=== PATIENT | female | born 1960 | race Caucasian/White ===

== ENCOUNTER 2018-07-01 05:55 | Emergency (ER) | payer OTHER ==
[~2018-07-01] VITALS: Ht 170.2 cm; Wt 90.7 kg
--- OUTSIDE RECORDS SUMMARY | ~2018-07-01 | XMS | Encounter Summary ---
Demographics + + + | Address | [address] | | | [place] [address] | + + + | Home Phone | [phone] | + + + | Preferred Language | Unknown | + + + | Marital Status | | + + + | Protestant Affiliation | Unknown | + + + | Race | Unknown | + + + | Ethnic Group | Unknown | + + + Author + + + | Author | | + + + | Organization | | + + + | Address | [address] | | | [place] [address] | + + + | Phone | [phone] | + + + Care Team Providers + +------+ + | Care Robotics Systems Engineer Name | Role | Phone | + +------+ + | Dayanara Candelaria MD | 3 | [phone] | + +------+ + Reason for Visit + + | None recorded. | + + Instructions + + | 1. Insect bite - wound | + + | culture, deep wound | + + + + | Discussion Note | + + | INSECT BITE this appears to be the insect bite reaction pt to dress w bacitracin | | /bandaid she should be at maximum now and should be getting better from today. ice | | periodically, elevate leg above heart level non sedating antihistamine Recheck if not | | markedly improved in 2 days, or not entirely well in ten days. Recheck sooner if | | worsening. | |non sedating antihistamine | | | |Recheck if not markedly improved in 2 days, or not entirely well in ten days. Recheck soone r if worsening. | + + Patient educational handouts: No information available. Plan of Care + + + + + | Reminders | | | Provider | | | | | | + + + + + | Appointments | Office Visit | 06/22/2017 8:00AM | [facility] Candelaria, | | | | | | + + + + + | Lab | Culture, Deep Wound | 06/05/2017 | [facility] | | | | | [place] [facility] | + + + + + | Referral | None recorded. | | | + + + + + | Procedures | None recorded. | | | + + + + + | Surgeries | None recorded. | | | + + + + + | Imaging | None recorded. | | | + + + + + Medications + + + + | Name | Start Date | | | | | | + + + + + +---+ | Activella 0.5 mg-0.1 mg tablet | | | Take 1 tablet every day by oral route. | | + +---+ | amlodipine 5 mg tablet | | | TAKE ONE TABLET BY MOUTH EVERY DAY | | + +---+ | losartan 100 mg-hydrochlorothiazide 25 mg | | | tablet TAKE ONE TABLET BY MOUTH EVERY | | | MORNING | | + +---+ | pantoprazole 40 mg tablet,delayed release | | | TAKE ONE TABLET BY MOUTH EVERY NIGHT AT | | | BEDTIME | | + +---+ | pravastatin 40 mg tablet | | | TAKE ONE TABLET BY MOUTH DAILY | | + +---+ Medications Administered None recorded. Vitals + + + + + | Height | Weight | BMI | Blood Pressure | + + + + + | 5 ft 7 in | 200 lbs | 31.3 kg/m2 | 172/79 mm[Hg] | + + + + + Lab Results +-------+-------+-------+-------+-------+-------+-------+-------+-------+-------+-------+ | Date | Name | Speci | Resul | Inter | Descr | Value | Range | Statu | Addre | | | | | men | t | preta | iptio | | | s | ss | | | | | | | tion | n | | | | | | | | | | | | | | | | | | | | | | | | | | | | | | | | | | | | | | | | | | | | | | | | | | | | | | +-------+-------+-------+-------+-------+-------+-------+-------+-------+-------+-------+ +--------+--------+---+--------+---+--------+--------+--------+-------+--------+ | 12/ | CMP, | | Normal | | Na | 141 | 136-14 | Final | [facility] | | 2017 | Serum | | | | | mmol/L | 5 | | [facility] | | | or | | | | | | mmol/L | | l | | | Plasma | | | | | | | | Center | | | | | | | | | | | | | | | | | | | | | | (Main) | | | | | | | | | | | : [address] | | | | | | | | | | | | | | | | | | | | | | [address] | | | | | | | | | | | [address] | | | | | | | | | | | [address], | | | | | | | | | | | [place] | | | | | | | | | | | rg | +--------+--------+---+--------+---+--------+--------+--------+-------+--------+ | | | | Normal | | K | 3.5 | 3.5-5. | Final | [facility] | | | | | | | | mmol/L | 5 | | [facility] | | | | | | | | | mmol/L | | l | | | | | | | | | | | Center | | | | | | | | | | | | | | | | | | | | | | (Main) | | | | | | | | | | | : [address] | | | | | | | | | | | | | | | | | | | | | | [address] | | | | | | | | | | | [address] | | | | | | | | | | | [address], | | | | | | | | | | | [place] | | | | | | | | | | | rg | +--------+--------+---+--------+---+--------+--------+--------+-------+--------+ | | | | Normal | | Cl | 102 | 98-108 | Final | [facility] | | | | | | | | mmol/L | | | [facility] | | | | | | | | | mmol/L | | l | | | | | | | | | | | Center | | | | | | | | | | | | | | | | | | | | | | (Main) | | | | | | | | | | | : [address] | | | | | | | | | | | | | | | | | | | | | | [address] | | | | | | | | | | | [address] | | | | | | | | | | | [address], | | | | | | | | | | | [place] | | | | | | | | | | | rg | +--------+--------+---+--------+---+--------+--------+--------+-------+--------+ | | | | Normal | | Co2 | 27 | 21-32 | Final | [facility] | | | | | | | | mmol/L | mmol/L | | [facility] | | | | | | | | | | | l | | | | | | | | | | | Center | | | | | | | | | | | | | | | | | | | | | | (Main) | | | | | | | | | | | : [address] | | | | | | | | | | | | | | | | | | | | | | [address] | | | | | | | | | | | [address] | | | | | | | | | | | [address], | | | | | | | | | | | [place] | | | | | | | | | | | rg | +--------+--------+---+--------+---+--------+--------+--------+-------+--------+ | | | | Normal | | Anion | 12 | 6-16 | Final | [facility] | | | | | | | Gap | mmol/L | mmol/L | | [facility] | | | | | | | | | | | l | | | | | | | | | | | Center | | | | | | | | | | | | | | | | | | | | | | (Main) | | | | | | | | | | | : [address] | | | | | | | | | | | | | | | | | | | | | | [address] | | | | | | | | | | | [address] | | | | | | | | | | | [address], | | | | | | | | | | | [place] | | | | | | | | | | | rg | +--------+--------+---+--------+---+--------+--------+--------+-------+--------+ | | | | High | | Gluc | 107 | 70-99 | Final | [facility] | | | | | | | | mg/dL | mg/dL | | [facility] | | | | | | | | | | | l | | | | | | | | | | | Center | | | | | | | | | | | | | | | | | | | | | | (Main) | | | | | | | | | | | : [address] | | | | | | | | | | | | | | | | | | | | | [address] | | | | | | | | | | | [address] | | | | | | | | | | | [address], | | | | | | | | | | | [place] | | | | | | | | | | | rg | +--------+--------+---+--------+---+--------+--------+--------+-------+--------+ | | | | Normal | | Bun | 18 | 8-24 | Final | [facility] | | | | | | | | mg/dL | mg/dL | | [facility] | | | | | | | | | | | l | | | | | | | | | | | Center | | | | | | | | | | | | | | | | | | | | | | (Main) | | | | | | | | | | | : [address] | | | | | | | | | | | | | | | | | | | | | | [address] | | | | | | | | | | | [address] | | | | | | | | | | | [address], | | | | | | | | | | | [place] | | | | | | | | | | | rg | +--------+--------+---+--------+---+--------+--------+--------+-------+--------+ | | | | Normal | | | 0.77 | 0.40-1 | Final | [facility] | | | | | | | Creati | mg/dL | .00 | | [facility] | | | | | | | nine | | mg/dL | | l | | | | | | | | | | | Center | | | | | | | | | | | | | | | | | | | | | | (Main) | | | | | | | | | | | : [address] | | | | | | | | | | | | | | | | | | | | | | [address] | | | | | | | | | | | t | | | | | | | | | | | [address], | | | | | | | | | | | [place] | | | | | | | | | | | rg | +--------+--------+---+--------+---+--------+--------+--------+-------+--------+ | | | | High | | | 23.4 % | 12.0-2 | Final | [facility] | | | | | | | BUN/cr | | 0.0 % | | [facility] | | | | | | | eat | | | | l | | | | | | | | | | | Center | | | | | | | | | | | | | | | | | | | | | | (Main) | | | | | | | | | | | : [address] | | | | | | | | | | | | | | | | | | | | | | [address] | | | | | | | | | | | t | | | | | | | | | | | [address], | | | | | | | | | | | [place] | | | | | | | | | | | rg | +--------+--------+---+--------+---+--------+--------+--------+-------+--------+ | | | | Normal | | Gfr | >60 | 60- | Final | [facility] | | | | | | | | | | | [facility] | | | | | | | | | | | l | | | | | | | | | | | Center | | | | | | | | | | | | | | | | | | | | | | (Main) | | | | | | | | | | | : [address] | | | | | | | | | | | | | | | | | | | | | | [address] | | | | | | | | | | | [address] | | | | | | | | | | | [address], | | | | | | | | | | | [place] | | | | | | | | | | | rg | +--------+--------+---+--------+---+--------+--------+--------+-------+--------+ | | | | Normal | | Ca | 9.1 | 8.5-10 | Final | [facility] | | | | | | | | mg/dL | .1 | | [facility] | | | | | | | | | mg/dL | | l | | | | | | | | | | | Center | | | | | | | | | | | | | | | | | | | | | | (Main) | | | | | | | | | | | : [address] | | | | | | | | | | | | | | | | | | | | | | [address] | | | | | | | | | | | [address] | | | | | | | | | | | [address], | | | | | | | | | | | [place] | | | | | | | | | | | rg | +--------+--------+---+--------+---+--------+--------+--------+-------+--------+ | | | | Normal | | Tot | 7.6 | 6.4-8. | Final | [facility] | | | | | | | Prot | g/dL | 2 g/dL | | [facility] | | | | | | | | | | | l | | | | | | | | | | | Center | | | | | | | | | | | | | | | | | | | | | | (Main) | | | | | | | | | | | : [address] | | | | | | | | | | | | | | | | | | | | | | [address] | | | | | | | | | | | t | | | | | | | | | | | [address], | | | | | | | | | | | [place] | | | | | | | | | | | rg | +--------+--------+---+--------+---+--------+--------+--------+-------+--------+ | | | | Normal | | Alb | 3.9 | 3.4-5. | Final | [facility] | | | | | | | | g/dL | 0 g/dL | | [facility] | | | | | | | | | | | l | | | | | | | | | | | Center | | | | | | | | | | | | | | | | | | | | | | (Main) | | | | | | | | | | | : [address] | | | | | | | | | | | | | | | | | | | | | | [address] | | | | | | | | | | | t | | | | | | | | | | | [address], | | | | | | | | | | | [place] | | | | | | | | | | | rg | +--------+--------+---+--------+---+--------+--------+--------+-------+--------+ | | | | Normal | | Glob | 3.7 | 2.2-4. | Final | [facility] | | | | | | | | g/dL | 0 g/dL | | [facility] | | | | | | | | | | | l | | | | | | | | | | | Center | | | | | | | | | | | | | | | | | | | | | | (Main) | | | | | | | | | | | : [address] | | | | | | | | | | | | | | | | | | | | | | [address] | | | | | | | | | | | t | | | | | | | | | | | [address], | | | | | | | | | | | [place] | | | | | | | | | | | rg | +--------+--------+---+--------+---+--------+--------+--------+-------+--------+ | | | | Normal | | | 1.1 | 0.8-1. | Final | [facility] | | | | | | | Alb/gl | | 8 | | [facility] | | | | | | | ob | | | | l | | | | | | | | | | | Center | | | | | | | | | | | | | | | | | | | | | | (Main) | | | | | | | | | | | : [address] | | | | | | | | | | | | | | | | | | | | | | [address] | | | | | | | | | | | t | | | | | | | | | | | [address], | | | | | | | | | | | [place] | | | | | | | | | | | rg | +--------+--------+---+--------+---+--------+--------+--------+-------+--------+ | | | | Normal | | Bili | 0.5 | 0.1-1. | Final | [facility] | | | | | | | Tot | mg/dL | 0 | | [facility] | | | | | | | | | mg/dL | | l | | | | | | | | | | | Center | | | | | | | | | | | | | | | | | | | | | | (Main) | | | | | | | | | | | : [address] | | | | | | | | | | | | | | | | | | | | [address] | | | | | | | | | | [address] | | | | | | | | | | | [address], | | | | | | | | | | | [place] | | | | | | | | | | | rg | +--------+--------+---+--------+---+--------+--------+--------+-------+--------+ | | | | Normal | | Alk | 106 | 40-126 | Final | [facility] | | | | | | | Phos | U/L | U/L | | [facility] | | | | | | | | | | | l | | | | | | | | | | | Center | | | | | | | | | | | | | | | | | | | | | | (Main) | | | | | | | | | | | : [address] | | | | | | | | | | | | | | | | | | | | | | [address] | | | | | | | | | | | t | | | | | | | | | | | [address], | | | | | | | | | | | [place] | | | | | | | | | | | rg | +--------+--------+---+--------+---+--------+--------+--------+-------+--------+ | | | | Normal | | Ast | 21 U/L | 12-37 | Final | [facility] | | | | | | | (Sgot) | | U/L | | [facility] | | | | | | | | | | | l | | | | | | | | | | | Center | | | | | | | | | | | | | | | | | | | | | | (Main) | | | | | | | | | | | : [address] | | | | | | | | | | | | | | | | | | | | | | [address] | | | | | | | | | | | t | | | | | | | | | | | [address], | | | | | | | | | | | [place] | | | | | | | | | | | rg | +--------+--------+---+--------+---+--------+--------+--------+-------+--------+ | | | | Normal | | Alt | 35 U/L | 12-78 | Final | [facility] | | | | | | | (Sgpt) | | U/L | | [facility] | | | | | | | | | | | l | | | | | | | | | | | Center | | | | | | | | | | | | | | | | | | | | | | (Main) | | | | | | | | | | | : [address] | | | | | | | | | | | | | | | | | | | | | | [address] | | | | | | | | | | | t | | | | | | | | | | | [address], | | | | | | | | | | | [place] | | | | | | | | | | | rg | +--------+--------+---+--------+---+--------+--------+--------+-------+--------+ | 05/20/ | CBC W/ | | Normal | | Wbc | 4.23 | 4.00-1 | Final | [facility] | | 2017 | Auto | | | | | K/mm3 | 1.30 | | [facility] | | | Diff | | | | | | K/mm3 | | l | | | | | | | | | | | Center | | | | | | | | | | | | | | | | | | | | | | (Main) | | | | | | | | | | | : [address] | | | | | | | | | | | | | | | | | | | | | | [address] | | | | | | | | | | | t | | | | | | | | | | | [address], | | | | | | | | | | | [place] | | | | | | | | | | | rg | +--------+--------+---+--------+---+--------+--------+--------+-------+--------+ | | | | Normal | | Rbc | 4.05 | 3.80-5 | Final | [facility] | | | | | | | | M/mm3 | .20 | | [facility] | | | | | | | | | M/mm3 | | l | | | | | | | | | | | Center | | | | | | | | | | | | | | | | | | | | | | (Main) | | | | | | | | | | | : [address] | | | | | | | | | | | | | | | | | | | | | | [address] | | | | | | | | | | | t | | | | | | | | | | | [address], | | | | | | | | | | | [place] | | | | | | | | | | | rg | +--------+--------+---+--------+---+--------+--------+--------+-------+--------+ | | | | Normal | | Hgb | 12.1 | 11.5-1 | Final | [facility] | | | | | | | | g/dL | 6.0 | | [facility] | | | | | | | | | g/dL | | l | | | | | | | | | | | Center | | | | | | | | | | | | | | | | | | | | | | (Main) | | | | | | | | | | | : [address] | | | | | | | | | | | | | | | | | | | | | | [address] | | | | | | | | | | | t | | | | | | | | | | | [address], | | | | | | | | | | | [place] | | | | | | | | | | | rg | +--------+--------+---+--------+---+--------+--------+--------+-------+--------+ | | | | Normal | | Hct | 35.3 % | 33.0-5 | Final | [facility] | | | | | | | | | 1.0 % | | [facility] | | | | | | | | | | | l | | | | | | | | | | | Center | | | | | | | | | | | | | | | | | | | | | | (Main) | | | | | | | | | | | : [address] | | | | | | | | | | | | | | | | | | | | | | [address] | | | | | | | | | | | t | | | | | | | | | | | [address], | | | | | | | | | | | [place] | | | | | | | | | | | rg | +--------+--------+---+--------+---+--------+--------+--------+-------+--------+ | | | | Normal | | Mcv | 87 fL | 80-100 | Final | [facility] | | | | | | | | | fL | | [facility] | | | | | | | | | | | l | | | | | | | | | | | Center | | | | | | | | | | | | | | | | | | | | | | (Main) | | | | | | | | | | | : [address] | | | | | | | | | | | | | | | | | | | | | | [address] | | | | | | | | | | | t | | | | | | | | | | | [address], | | | | | | | | | | | [place] | | | | | | | | | | | rg | +--------+--------+---+--------+---+--------+--------+--------+-------+--------+ | | | | Normal | | Mch | 29.9 | 26.0-3 | Final | [facility] | | | | | | | | pg | 4.0 pg | | [facility] | | | | | | | | | | | l | | | | | | | | | | | Center | | | | | | | | | | | | | | | | | | | | | | (Main) | | | | | | | | | | | : [address] | | | | | | | | | | | | | | | | | | | | | | [address] | | | | | | | | | | | t | | | | | | | | | | | [address], | | | | | | | | | | | [place] | | | | | | | | | | | rg | +--------+--------+---+--------+---+--------+--------+--------+-------+--------+ | | | | Normal | | Mchc | 34.3 | 31.5-3 | Final | [facility] | | | | | | | | g/dL | 6.5 | | [facility] | | | | | | | | | g/dL | | l | | | | | | | | | | | Center | | | | | | | | | | | | | | | | | | | | | | (Main) | | | | | | | | | | | : [address] | | | | | | | | | | | | | | | | | | | | | | [address] | | | | | | | | | | | t | | | | | | | | | | | [address], | | | | | | | | | | | [place] | | | | | | | | | | | rg | +--------+--------+---+--------+---+--------+--------+--------+-------+--------+ | | | | Normal | | Rdw | 41.1 | 35.1-4 | Final | [facility] | | | | | | | Sd | fL | 6.3 fL | | [facility] | | | | | | | | | | | l | | | | | | | | | | | Center | | | | | | | | | | | | | | | | | | | | | | (Main) | | | | | | | | | | | : [address] | | | | | | | | | | | | | | | | | | | | | | [address] | | | | | | | | | | | t | | | | | | | | | | | [address], | | | | | | | | | | | [place] | | | | | | | | | | | rg | +--------+--------+---+--------+---+--------+--------+--------+-------+--------+ | | | | Normal | | Rdw | 12.9 % | 11.7-1 | Final | [facility] | | | | | | | Cv | | 4.2 % | | [facility] | | | | | | | | | | | l | | | | | | | | | | | Center | | | | | | | | | | | | | | | | | | | | | | (Main) | | | | | | | | | | | : [address] | | | | | | | | | | | | | | | | | | | | [address] | | | | | | | | | | [address] | | | | | | | | | | | [address], | | | | | | | | | | | [place] | | | | | | | | | | | rg | +--------+--------+---+--------+---+--------+--------+--------+-------+--------+ | | | | Normal | | Plt | 237 | 150-40 | Final | [facility] | | | | | | | | K/mm3 | 0 | | [facility] | | | | | | | | | K/mm3 | | l | | | | | | | | | | | Center | | | | | | | | | | | | | | | | | | | | | | (Main) | | | | | | | | | | | : [address] | | | | | | | | | | | | | | | | | | | | | | [address] | | | | | | | | | | | t | | | | | | | | | | | [address], | | | | | | | | | | | [place] | | | | | | | | | | | rg | +--------+--------+---+--------+---+--------+--------+--------+-------+--------+ | | | | Normal | | Mpv | 9.9 fL | 9.1-12 | Final | [facility] | | | | | | | | | .4 fL | | [facility] | | | | | | | | | | | l | | | | | | | | | | | Center | | | | | | | | | | | | | | | | | | | | | | (Main) | | | | | | | | | | | : [address] | | | | | | | | | | | | | | | | | | | | | | [address] | | | | | | | | | | | t | | | | | | | | | | | [address], | | | | | | | | | | | [place] | | | | | | | | | | | rg | +--------+--------+---+--------+---+--------+--------+--------+-------+--------+ | | | | Normal | | Diff | auto | | Final | [facility] | | | | | | | Type | | | | [facility] | | | | | | | | | | | l | | | | | | | | | | | Center | | | | | | | | | | | | | | | | | | | | | | (Main) | | | | | | | | | | | : [address] | | | | | | | | | | | | | | | | | | | | | | [address] | | | | | | | | | | | t | | | | | | | | | | | [address], | | | | | | | | | | | [place] | | | | | | | | | | | rg | +--------+--------+---+--------+---+--------+--------+--------+-------+--------+ | | | | Normal | | Neut | 56 % | 41-73 | Final | [facility] | | | | | | | % | | % | | [facility] | | | | | | | | | | | l | | | | | | | | | | | Center | | | | | | | | | | | | | | | | | | | | | | (Main) | | | | | | | | | | | : [address] | | | | | | | | | | | | | | | | | | | | | | [address] | | | | | | | | | | | t | | | | | | | | | | | [address]kw[address], | | | | | | | | | | | [place] | | | | | | | | | | | rg | +--------+--------+---+--------+---+--------+--------+--------+-------+--------+ | | | | Normal | | Lymph | 32 % | 21-46 | Final | [facility] | | | | | | | % | | % | | [facility] | | | | | | | | | | | l | | | | | | | | | | | Center | | | | | | | | | | | | | | | | | | | | | | (Main) | | | | | | | | | | | : [address] | | | | | | | | | | | | | | | | | | | | | | [address] | | | | | | | | | | | t | | | | | | | | | | | [address], | | | | | | | | | | | [place] | | | | | | | | | | | rg | +--------+--------+---+--------+---+--------+--------+--------+-------+--------+ | | | | Normal | | [facility] | 7 % | 4-13 % | Final | [facility] | | | | | | | % | | | | [facility] | | | | | | | | | | | l | | | | | | | | | | | Center | | | | | | | | | | | | | | | | | | | | | | (Main) | | | | | | | | | | | : [address] | | | | | | | | | | | | | | | | | | | | | | [address] | | | | | | | | | | | t | | | | | | | | | | | [address], | | | | | | | | | | | [place] | | | | | | | | | | | rg | +--------+--------+---+--------+---+--------+--------+--------+-------+--------+ | | | | Normal | | Eosin | 3 % | 0-6 % | Final | [facility] | | | | | | | % | | | | [facility] | | | | | | | | | | | l | | | | | | | | | | | Center | | | | | | | | | | | | | | | | | | | | | | (Main) | | | | | | | | | | | : [address] | | | | | | | | | | | | | | | | | | | | | [address] | | | | | | | | | | | [address] | | | | | | | | | | | [address], | | | | | | | | | | | [place] | | | | | | | | | | | rg | +--------+--------+---+--------+---+--------+--------+--------+-------+--------+ | | | | Normal | | Baso | 1 % | 0-2 % | Final | [facility] | | | | | | [facility] | | | [facility] | | | | | | | | | | | [facility] | | | | | | | | | | | Center | | | | | | | | | | | | | | | | | | | | | | ([facility]) | | | | | | | | | | | : [address] | | | | | | | | | | | | | | | | | | | | | | [address] | | | | | | | | | | | [address] | | | | | | | | | | | [address], | | | | | | | | | | | [place] | | | | | | | | | | | rg | +--------+--------+---+--------+---+--------+--------+--------+-------+--------+ | | | | Normal | | Imm | 1 % | 0-1 % | Final | [facility] | | | | | | | Grans | | | | [facility] | | | | | | | % | | | | l | | | | | | | | | | | Center | | | | | | | | | | | | | | | | | | | | | | ([facility]) | | | | | | | | | | | : [address] | | | | | | | | | | | | | | | | | | | | | | [address] | | | | | | | | | | | [address] | | | | | | | | | | | [address], | | | | | | | | | | | [place] | | | | | | | | | | | rg | +--------+--------+---+--------+---+--------+--------+--------+-------+--------+ | | | | Normal | | Nrbc | 0.0 | 0.0-0. | Final | [facility] | | | | | | | | /100 | 2 /100 | | [facility] | | | | | | | | WBC | WBC | | l | | | | | | | | | | | Center | | | | | | | | | | | | | | | | | | | | | | ([facility]) | | | | | | | | | | | : [address] | | | | | | | | | | | | | | | | | | | | | | [address] | | | | | | | | | | | [address] | | | | | | | | | | | [address], | | | | | | | | | | | [place] | | | | | | | | | | | rg | +--------+--------+---+--------+---+--------+--------+--------+-------+--------+ | | | | Normal | | Abs | 2.39 | 1.96-9 | Final | [facility] | | | | | | | Neut | K/mm3 | .15 | | [facility] | | | | | | | | | K/mm3 | | l | | | | | | | | | | | Center | | | | | | | | | | | | | | | | | | | | | | ([facility]) | | | | | | | | | | | : [address] | | | | | | | | | | | | | | | | | | | | | | [address] | | | | | | | | | | | [address] | | | | | | | | | | | [address], | | | | | | | | | | | [place] | | | | | | | | | | | rg | +--------+--------+---+--------+---+--------+--------+--------+-------+--------+ | | | | Normal | | Abs | 1.36 | 0.84-5 | Final | [facility] | | | | | | | Lymph | K/mm3 | .20 | | [facility] | | | | | | | | | K/mm3 | | l | | | | | | | | | | | Center | | | | | | | | | | | | | | | | | | | | | | ([facility]) | | | | | | | | | | | : [address] | | | | | | | | | | | | | | | | | | | | | | [address] | | | | | | | | | | | [address] | | | | | | | | | | | [address], | | | | | | | | | | | [place] | | | | | | | | | | | rg | +--------+--------+---+--------+---+--------+--------+--------+-------+--------+ | | | | Normal | | Abs | 0.29 | 0.16-1 | Final | [facility] | | | | | | | [facility] | K/mm3 | .47 | | [facility] | | | | | | | | | K/mm3 | | l | | | | | | | | | | | Center | | | | | | | | | | | | | | | | | | | | | | (Main) | | | | | | | | | | | : [address] | | | | | | | | | | | | | | | | | | | | | | [address] | | | | | | | | | | | [address] | | | | | | | | | | | [address], | | | | | | | | | | | [place] | | | | | | | | | | | rg | +--------+--------+---+--------+---+--------+--------+--------+-------+--------+ | | | | Normal | | Abs | 0.12 | 0.00-0 | Final | [facility] | | | | | | | Eosin | K/mm3 | .68 | | [facility] | | | | | | | | | K/mm3 | | l | | | | | | | | | | | Center | | | | | | | | | | | | | | | | | | | | | | ([facility]) | | | | | | | | | | | : [address] | | | | | | | | | | | | | | | | | | | | | | [address] | | | | | | | | | | | [address] | | | | | | | | | | | [address], | | | | | | | | | | | [place] | | | | | | | | | | | rg | +--------+--------+---+--------+---+--------+--------+--------+-------+--------+ | | | | Normal | | Abs | 0.05 | 0.00-0 | Final | [facility] | | | | | | | Baso | K/mm3 | .23 | | [facility] | | | | | | | | | K/mm3 | | l | | | | | | | | | | | Center | | | | | | | | | | | | | | | | | | | | | | ([facility]) | | | | | | | | | | | : [address] | | | | | | | | | | | | | | | | | | | | | | [address] | | | | | | | | | | | [address] | | | | | | | | | | | [address], | | | | | | | | | | | [place] | | | | | | | | | | | rg | +--------+--------+---+--------+---+--------+--------+--------+-------+--------+ | | | | Normal | | Abs | 0.02 | 0.00-0 | Final | [facility] | | | | | | | Imm | K/mm3 | .10 | | [facility] | | | | | | | Grans | | K/mm3 | | l | | | | | | | | | | | Center | | | | | | | | | | | | | | | | | | | | | | (Main) | | | | | | | | | | | : [address] | | | | | | | | | | | | | | | | | | | | | | [address] | | | | | | | | | | | [address] | | | | | | | | | | | [address], | | | | | | | | | | | [place] | | | | | | | | | | | rg | +--------+--------+---+--------+---+--------+--------+--------+-------+--------+ | | | | Normal | | Abs | 0.00 | 0.00-0 | Final | [facility] | | | | | | | NRBC | K/mm3 | .02 | | [facility] | | | | | | | | | K/mm3 | | l | | | | | | | | | | | Center | | | | | | | | | | | | | | | | | | | | | | (Main) | | | | | | | | | | | : [address] | | | | | | | | | | | | | | | | | | | [address] | | | | | | | | | | [address] | | | | | | | | | | | [address], | | | | | | | | | | | [place] | | | | | | | | | | | rg | +--------+--------+---+--------+---+--------+--------+--------+-------+--------+ | 07/12/ | Erythr | | High | | Sed | 46 | 0-20 | Final | [facility] | | 2017 | ocyte | | | | Rate | mm/HR | mm/HR | | Medica | | | Sedime | | | | | | | | l | | | ntatio | | | | | | | | Center | | | n Rate | | | | | | | | | | | by | | | | | | | | (Main) | | | [place]attie | | | | | | | | : [address] | | | | | | | | | | | [address] | | | | | | | | [address] | | | | | | | | | | | t | | | | | | | | | | | Pkw[address], | | | | | | | | | | | [place] | | | | | | | | | | | rg | +--------+--------+---+--------+---+--------+--------+--------+-------+--------+ | 05/20/ | C-reac | | High | | CRP | 0.761 | 0.000- | Final | [facility] | | 2017 | tive | | | | Ext | mg/dL | 0.300 | | Medica | | | Protei | | | | Range | | mg/dL | | l | | | n, | | | | | | | | Center | | | Quanti | | | | | | | | | | | tative | | | | | | | | (Main) | | | | | | | | | | | : [address] | | | | | | | | | | | | | | | | | | | | | | [address] | | | | | | | | | | | t | | | | | | | | | | | Pkw[address], | | | | | | | | | | | [place] | | | | | | | | | | | rg | +--------+--------+---+--------+---+--------+--------+--------+-------+--------+ | 05/20/ | C3 | | Normal | | C3 | 140 | 90-200 | Final | [facility] | | 2017 | (Compl | | | | | mg/dL | mg/dL | | Medica | | | ement) | | | | | | | | l | | | , | | | | | | | | Center | | | Serum | | | | | | | | | | | or | | | | | | | | (Main) | | | Plasma | | | | | | | | : [address] | | | | | | | | | | | | | | | | | | | | | | [address] | | | | | | | | | | | t | | | | | | | | | | | Pkw[address], | | | | | | | | | | | [place] | | | | | | | | | | | rg | +--------+--------+---+--------+---+--------+--------+--------+-------+--------+ | 05/20/ | C4 | | Normal | | C4 | 24.8 | 15.0-5 | Final | [facility] | | 2016 | (Compl | | | | | mg/dL | 5.0 | | Medica | | | ement) | | | | | | mg/dL | | l | | | , | | | | | | | | Center | | | Serum | | | | | | | | | | | or | | | | | | | | (Main) | | | Plasma | | | | | | | | : [address] | | | | | | | | | | | | | | | | | | | | | | [address] | | | | | | | | | | | t | | | | | | | | | | | Pkw[address], | | | | | | | | | | | [place] | | | | | | | | | | | rg | +--------+--------+---+--------+---+--------+--------+--------+-------+--------+ | 05/20/ | HBsAg | | Normal | | Hbs | non | nr | Final | [facility] | | 2017 | (Hepat | | | | Ag | reacti | | | Medica | | | itis B | | | | Screen | ve | | | l | | | | | | | | | | | Center | | | Surfac | | | | | | | | | | | e Ag), | | | | | | | | (Main) | | | Serum | | | | | | | | : [address] | | | | | | | | | | | | | | | | | | | | | | [address] | | | | | | | | | | | t | | | | | | | | | | | Pkw[address], | | | | | | | | | | | [place] | | | | | | | | | | | rg | +--------+--------+---+--------+---+--------+--------+--------+-------+--------+ | 05/20/ | Hepati | | Normal | | Hcv | non | nr | Final | [facility] | | 2017 | tis C | | | | | reacti | | | Medica | | | Ab, | | | | | ve | | | l | | | Serum | | | | | | | | Center | | | | | | | | | | | | | | | | | | | | | | (Main) | | | | | | | | | | | : [address] | | | | | | | | | | | | | | | | | | | | | | [address] | | | | | | | | | | | t | | | | | | | | | | | Pkw[address], | | | | | | | | | | | [place] | | | | | | | | | | | rg | +--------+--------+---+--------+---+--------+--------+--------+-------+--------+ | 05/20/ | Anca, | | Normal | | Anca | <1:20 | | Final | [facility] | | 2017 | Serum | | | | | | | | Medica | | | | | | | | | | | l | | | | | | | | | | | Center | | | | | | | | | | | | | | | | | | | | | | (Main) | | | | | | | | | | | : [address] | | | | | | | | | | | | | | | | | | | | | | [address] | | | | | | | | | | | t | | | | | | | | | | | Pkw[address], | | | | | | | | | | | [place] | | | | | | | | | | | rg | +--------+--------+---+--------+---+--------+--------+--------+-------+--------+ | 05/20/ | Cryogl | | Normal | | | negati | neg | Final | [facility] | | 2017 | obulin | | | | Cryogl | ve | | | Medica | | | , | | | | obulin | | | | l | | | Qualit | | | | , 24H | | | | Center | | | ative, | | | | | | | | | | | Serum | | | | | | | | (Main) | | | | | | | | | | | : [address] | | | | | | | | | | | | | | | | | | | | | | [address] | | | | | | | | | | | t | | | | | | | | | | | Pkwy, | | | | | | | | | | | [place] | | | | | | | | | | | rg | +--------+--------+---+--------+---+--------+--------+--------+-------+--------+ | | | | Normal | | | negati | neg | Final | [facility] | | | | | | | Cryogl | ve | | | Medica | | | | | | | obulin | | | | l | | | | | | | , 48H | | | | Center | | | | | | | | | | | | | | | | | | | | | | (Main) | | | | | | | | | | | : [address] | | | | | | | | | | | | | | | | | | | | | | [address] | | | | | | | | | | | t | | | | | | | | | | | Pkwy, | | | | | | | | | | | [place] | | | | | | | | | | | rg | +--------+--------+---+--------+---+--------+--------+--------+-------+--------+ | | | | Normal | | | negati | neg | Final | [facility] | | | | | | | Cryogl | ve | | | Medica | | | | | | | obulin | | | | l | | | | | | | , 72H | | | | Center | | | | | | | | | | | | | | | | | | | | | | (Main) | | | | | | | | | | | : [address] | | | | | | | | | | | | | | | | | | | | | | [address] | | | | | | | | | | | t | | | | | | | | | | | Pkwy, | | | | | | | | | | | [place] | | | | | | | | | | | rg | +--------+--------+---+--------+---+--------+--------+--------+-------+--------+ | | | | Normal | | | negati | neg | Final | [facility] | | | | | | | Cryogl | ve | | | Medica | | | | | | | obulin | | | | l | | | | | | | , 7D | | | | Center | | | | | | | | | | | | | | | | | | | | | | (Main) | | | | | | | | | | | : [address] | | | | | | | | | | | | | | | | | | | | | | [address] | | | | | | | | | | | t | | | | | | | | | | | Pkw[address], | | | | | | | | | | | [place] | | | | | | | | | | | rg | +--------+--------+---+--------+---+--------+--------+--------+-------+--------+ Allergies +-------+ + + + +-------+ | Code | Code System | Name | Reaction | Severity | Onset | +-------+ + + + +-------+ | [id number] | RxNorm | Lisinopril | Cough | | | +-------+ + + + +-------+ Problems + + + + + + | Name | Status | Onset Date | Source | | | | | | | | + + + + + + + +--------+---+ + | Vitamin D | Active | | Encounter | | Deficiency | | | | + +--------+---+ + | Hyperlipidemia | Active | | Encounter | + +--------+---+ + | Obstructive Sleep | Active | | Encounter | | Apnea Syndrome | | | | + +--------+---+ + | Benign Essential | Active | | Encounter | | Hypertension | | | | + +--------+---+ + | Hypertensive | Active | | Encounter | | Disorder | | | | + +--------+---+ + | Gastroesophageal | Active | | Encounter | | Reflux Disease | | | | + +--------+---+ + | Degenerative Joint | Active | | Encounter | | Disease Involving | | | | | Multiple Joints | | | | + +--------+---+ + | Abnormal Glucose | Active | | Encounter | | Level | | | | + +--------+---+ + | Mammography | Active | | Encounter | | Abnormal | | | | + +--------+---+ + | Thyroid Function | Active | | Encounter | | Tests Abnormal | | | | + +--------+---+ + Procedures + + + + + | Date | Name | Performed by | | | | | | | + + + + + + + + + | 11/09/1987 | Oophorectomy | Information not available | + + + + | 11/09/1969 | Tonsillectomy and | Information not available | | | Adenoidectomy | | + + + + Vaccine List + + | Vaccine Type | + + | influenza, injectable, quadrivalent, preservative free | + + | 08/23/2014 0.5 mL | + + | 08/16/2015 0.5 mL | + + | 09/24/2016 0.5 mL | + + | influenza, seasonal, injectable, preservative free | + + | 08/08/2013 | + + | Tdap | + + | 01/29/2012 | + + Social History + + +---+ | Smoking Status | Never Smoker | | + + +---+ Past Encounters + + | 06/05/2017 | | Insect Bite - Wound | | Andrew Brooks MD: [address] [address], [place]. | + + History of Present Illness Note:56 yof felt sting of insect two days ago. it was a red valentina but then expande d and got a blistery center. It is somewhat tender. no hx DM,Heartdisease, HTNReview of Sys tems:ROS as noted in the HPI Review of Systems None recorded. Physical Exam +--------+ + | | | +--------+ + | Notes: | left leg 3" above ankle: 1" erythema w 3mm | | | blister in center. no cellulitis, no | | | lymphangitis | +--------+ +
--- OUTSIDE RECORDS SUMMARY | ~2018-07-01 | XMS | Encounter Summary ---
Demographics + + + | Address | [address] | | | [place] [address] | + + + | Home Phone | [phone] | + + + | Preferred Language | Unknown | + + + | Marital Status | | + + + | Denominational Affiliation | Unknown | + + + | Race | Unknown | + + + | Ethnic Group | Unknown | + + + Author + + + | Author | | + + + | Organization | | + + + | Address | [address] | | | [place] [address] | + + + | Phone | [phone] | + + + Care Team Providers + +------+ + | Care Credit Card Clerk Name | Role | Phone | + +------+ + | Dayanara Candelaria MD | 3 | [phone] | + +------+ + Reason for Visit + + | None recorded. | + + Instructions + + | 1. Acute bronchitis | + + | Raymond Zhu 100 mg capsule | + + + + | Discussion Note | + + | Tried Zpak previously and still reports symptoms. Rx for Raymond Zhu to help | | suppress cough. Declines inhaler. Advised to rest and push fluids. Patient advised to | | followup if symptoms are not improving if symptoms worsen, or if new symptoms develop. | + + Patient educational handouts: No information available. Plan of Care + + + + + | Reminders | | | Provider | | | | | | + + + + + | Appointments | Office Visit 20 | 08/10/2018 8:00AM | Bibiana Candelaria, | | | | | MD | + + + + + | Lab | None recorded. | | | + [...] EVERY DAY | | + +---+ | folic acid 1 mg tablet | | | Take 1 tablet every day by oral route. | | + +---+ | losartan 100 mg-hydrochlorothiazide 25 mg | | | tablet TAKE ONE TABLET BY MOUTH EVERY | | | MORNING | | + +---+ | methotrexate sodium 15 mg tablet | | | Take 1 tablet every week by oral route. | | + +---+ | pantoprazole 40 mg tablet,delayed release | | | TAKE ONE TABLET BY MOUTH EVERY NIGHT AT | | | BEDTIME | | + +---+ | pravastatin 40 mg tablet | | | TAKE ONE TABLET BY MOUTH DAILY | | + +---+ | Tessalon Perles 100 mg capsule Take 1 | | | capsule 3 times a day by oral route. | | + +---+ Medications Administered None recorded. Vitals + + + + + | Height | Weight | BMI | Blood Pressure | + + + + + | 5 ft 7 in | 202 lbs 16 oz | 31.8 kg/m2 | 159/73 mm[Hg] | + + + + + Lab Results None recorded. Allergies +-------+--------+ + + +--------+-------+ | Code | Code | Name | Reaction | Severity | Status | Onset | | | System | | | | | | +-------+--------+ + + +--------+-------+ | [id number] | RxNorm | Lisinopril | Cough | | Active | | +-------+--------+ + + +--------+-------+ Problems + + + + + + | Name | Status | Onset Date | Source | | | | | | | | + + + + + + + +--------+---+ + | Hyperlipidemia | Active [...] Adenoidectomy | | + + + + | 03/01/2018 | XR, Knee, Weightbearing | [facility]) | | | | [address] | | | | [place] | | | | (Work Place) | + + + + | 03/01/2018 | XR, Elbow, 2 View | [facility]) | | | | [address] | | | | [place] [address] | | | | (Work Place) | + + + + | 03/01/2018 | XR, Elbow, 2 View | [facility] | | | | [address] | | | | [place] [address] | | | | (Work Place) | + + + + Vaccine List + + | Vaccine Type | + + | influenza, injectable, quadrivalent | + + | 10/23/2017 0.5 mL | + + | influenza, injectable, quadrivalent, [...] | + + +---+ Past Encounters + ----+ | 03/13/2018Acute BronchitisKaren Mindy Lynn MD: [address], [place], | | [place] [address], Ph. | |Kala Lynn MD: [address], [place] [address], Ph. | + ----+ | 03/08/2018Acute Upper Respiratory InfectionCharchrissy Chowdhury PA-C: [address] | | [address], [place] [address], Ph. | |Mauri Chowdhury PA-C: [address], [place] [address], Ph. | + ----+ | 03/01/2018Benign Essential Hypertension; Hyperlipidemia; Degenerative Joint Disease | | Involving Multiple Joints; Bilateral Elbow Joint Pain; Bilateral Knee Pain; Skilled Nursing | | Methotrexate Julio César Candelaria MD: [address] | | [address], Ph. | + ----+ History of Present Illness Note:57 YOF nonsmoker presents with her for recheck of cough. She was see n on 03/08/2018 by Wolf for URI and was Rx'd a Zpak, which she finished and did not help. S he states her cough is worsening. She also reports runny nose. She reports Wolf had her sta rt using Delsium, which helps sometimes. Review of Systems + + + | | Moderate Female ROS | + + + | Reported By: | Patient | + + + | Constitutional: | Constitutional: no fever; no chills | + + + | ENMT: | Nose: nose/sinus problems | + + + | Respiratory: | Respiratory: ; + cough | + + + Physical Exam + + + | | Cough | + + + | Reported By: | Patient | + + + | Constitutional: | General Appearance: awake, alert, NAD | + + + | ENT: | Right Ear: TM clear. Left Ear: TM clear. | | | Nasopharynx: clear. Pharynx: airway clear. | | | Tonsils: normal, no trismus, no abscess. | | | Neck: supple, trachea midline | + + + | Chest/Lungs: | Chest/Lungs: clear to auscultation, | | | breathing sounds equal bilaterally | + + + | Cardiovascular: | Heart: normal rate/rhythm | + + + | Musculoskeletal:: | Extremities: normal | + + + | Neurologic: | Neurologic: intact, non-focal | + + +"
--- OUTSIDE RECORDS SUMMARY | ~2018-07-01 | XMS | Encounter Summary ---
Demographics + + + | Address | [address] | | | [place] [address] | + + + | Home Phone | [phone] | + + + | Preferred Language | Unknown | + + + | Marital Status | | + + + | Congregation Affiliation | Unknown | + + + | Race | Unknown | + + + | Ethnic Group | Unknown | + + + Author + + + | Author | | + + + | Organization | | + + + | Address | [address] | | | [place] [address] | + + + | Phone | [phone] | + + + Care Team Providers + +------+ + | Care General Production Laborer Name | Role | Phone | + +------+ + | Dayanara Candelaria MD | 3 | [phone] | + +------+ + Reason for Visit + + | None recorded. | + + Instructions + + | 1. Benign essential hypertension | + + | 2. Hyperlipidemia | + + | high cholesterol: care instructions | + + | coronary risk panel, serum | + + | CMP, serum or plasma | + + | TSH, serum or plasma | + + + + | Discussion Note | + + | [id number] | + + Plan of Care + + + + + | Reminders | | | Provider | | | | | | + + + + + | Appointments | Office Visit | 03/01/2018 8:00AM | Bibiana Candelaria, | | | | | MD | + + + + + | Lab | Coronary Risk | 06/22/2017 | [facility] | | | Panel, Serum | | Center ([facility]) | + + + + + | | CMP, Serum or | 06/22/2017 | [facility] | | | Plasma | | Center ([facility]) | + + + + + | | TSH, Serum or | 06/22/2017 | [facility] | | | Plasma | | Center ([facility]) | + + + + + | [...] EVERY DAY | | + +---+ | clobetasol 0.05 % topical ointment APPLY A | | | THIN LAYER TO THE AFFECTED AREA(S) BY | | | TOPICAL ROUTE 2 TIMES PER DAY | | + +---+ | losartan [...] + | 5 ft 7 in | 199 lbs 16 oz | 31.3 kg/m2 | 140/80 mm[Hg] | + + + + + [...] | | | | | | +-------+-------+-------+-------+-------+-------+-------+-------+-------+-------+-------+ +--------+--------+--------+---+---+--------+---+---+-------+--------+ | 06/05/ | Cultur | MISCEL | | | | | | Final | [facility] | | 2016 | e, | LANEOU | | | Result | | | | Medica | | | Deep | S | | | s | | | | l | | | Wound | WOUND | | | | | | | [...] | | | | | rg | +--------+--------+--------+---+---+--------+---+---+-------+--------+ Allergies +-------+--------+ + + +--------+-------+ | Code | Code | Name | Reaction | Severity | Status | Onset | | | System | | | | | | +-------+--------+ + + +--------+-------+ | [id number] | RxNorm | Lisinopril | Cough | [...] | + + +---+ Past Encounters + --+ | 06/22/2017Benign Essential Hypertension; Francisco Candelaria MD: [address] | | [place] [address], Ph. | |Bibiana Candelaria MD: [address] [place] [address], Ph. | + --+ | 06/05/2017 | | Insect Bite - Wound | | Andrew Brooks MD: [address], [place] [address], Ph. | + --+ History of Present Illness Note:She is feeling well in general. <div>
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 </div> Review of Systems + + + | | Moderate Female ROS | + + + | Reported By: | Patient | + + + | Constitutional: | Constitutional: no fever, no significant | | | weight loss/gain | + + + | Cardiovascular: | Cardiovascular: no chest pain, no | | | palpitations | + + + | Respiratory: | Respiratory: no wheezing, no shortness of | | | breath | + + + | Musculoskeletal: | Musculoskeletal: no myalgias, no | | | arthralgias/joint pain | + + + Physical Exam + + + | | Cough | + + + | Reported By: | Patient | + + + | Constitutional: | General Appearance: awake, alert, NAD | + + + | Chest/Lungs: | Chest/Lungs: clear to auscultation, | | | breathing sounds equal bilaterally | + + + | Musculoskeletal:: | Extremities: normal | + + +"
--- OUTSIDE RECORDS SUMMARY | ~2018-07-01 | XMS | Encounter Summary ---
Demographics + + + | Address | [address] | | | [place] [address] | + + + | Home Phone | [phone] | + + + | Preferred Language | Unknown | + + + | Marital Status | | + + + | Nondenominational Affiliation | Unknown | + + + | Race | Unknown | + + + | Ethnic Group | Unknown | + + + Author + + + | Author | | + + + | Organization | | + + + | Address | [address] | | | [place] [address] | + + + | Phone | [phone] | + + + Care Team Providers + +------+ + | Care Claim Adjuster Name | Role | Phone | + +------+ + | Dayanara Candelaria MD | 3 | [phone] | + +------+ + Reason for Visit + + | None recorded. | + + Instructions + + | 1. Benign essential hypertension | + + | 2. Hyperlipidemia | + + | 3. Degenerative joint disease involving multiple joints | + + | erythrocyte sedimentation rate by westergren method | + + | 4. Bilateral elbow joint pain | + + | XR, elbow, 2 view | + + | XR, elbow, 2 view | + + | 5. Bilateral knee pain | + + | XR, knee, weightbearing | + + | 6. skilled nursing methotrexate user | + + + + | Discussion Note | + + | 05100 | + + Patient educational handouts: No information available. Plan of Care + + + + + | Reminders | | | Provider | | | | | | + + + + + | Appointments | Office Visit 20 | 08/10/2018 8:00AM | Bibiana Candelaria, | | | | | MD | + + + + + | Lab | Erythrocyte | 03/01/2018 | [facility] | | | Sedimentation Rate | | Lab | | | by Alok | | | | | Method | | | + + + + + | Referral | None recorded. | | | + + + + + | Procedures | None recorded. | | | + + + + + | Surgeries | None recorded. | | | + + + + + | Imaging | XR, Knee, | 03/01/2018 | [facility] | | | Weightbearing | | Center ([facility]) | + + + + + | | XR, Elbow, 2 View | 03/01/2018 | [facility] | | | | | Center ([facility]) | + + + + + | | XR, Elbow, 2 View | 03/01/2018 | [facility] | | | | | Center ([facility]) | + + + + + Medications [...] + | 5 ft 7 in | 205 lbs 4 oz | 32.1 kg/m2 | (1) 130/76 mm[Hg] | | | | | (2) 131/76 mm[Hg] | + + + + + Lab Results None recorded. Allergies +-------+--------+ + + +--------+-------+ | Code | Code | Name | Reaction | Severity | Status | Onset | | | System | | | | | | +-------+--------+ + + +--------+-------+ | 43481 | RxNorm | Lisinopril | Cough | [...] | 03/01/2018 | XR, Knee, Weightbearing | [facility]) | | | | [address] | | | | [place] [address] | | | | (Work Place) | + + + + | 03/01/2018 | XR, Elbow, 2 View | [facility]) | | | | [address] | | | | [place] [address] | | | | (Work Place) | + + + + | 03/01/2018 | XR, Elbow, 2 View | [facility]) | | | | [address] | | | | [place] [address] | | | | (Work Place) | [...] + +---+ Past Encounters + + | 03/01/2018Benign Essential Hypertension; Hyperlipidemia; Degenerative Joint Disease | | Involving Multiple Joints; Bilateral Elbow Joint Pain; Bilateral Knee Pain; Medical Billing Supervisor | | Methotrexate Julio César Candelaria MD: [address] | | [address], Ph. | + + History of Present Illness Note:Edie is a 57 year old female here today for f/u HTN and DJD.
<div>
</div><div>HTN: Home BPs trending as low as 100s/60s, with just a few elevated. Tolerating a mlodipine and losartan well without complications.
</div><div>
</div><div>DJD: C/o aching in the elbows recently, worse in the morning. Does sometimes have numbness in the who le left hand at night, which she attributes to sleep position (she sleeps on the left). No n umbness with driving, writing, or other activities; she is right-handed. Knees also are stif f if she sits for a while.</div><div>
</div><div>REcently with increased burping. NO abd pain. Increased stress related to completion of tax season. No post nasal drip. </div> Review of Systems + + + [...] | breath | + + + | Gastrointestinal: | Gastrointestinal: ; +frequent burping | + + + | Musculoskeletal: | Musculoskeletal: arthralgias/joint pain | + + + | Neurologic: | Neurologic: ; +hand numbness at night on | | | the left | + + + Physical Exam + + + | | Abdominal Pain, Cough | + + + | Reported By: | Patient | + + + | Constitutional: | General Appearance: awake, alert, NAD | + + + | Cardiovascular: | Heart: regular rate and rhythm | + + + | Chest/Lungs: | Chest/Lungs: clear to auscultation, | | | breathing sounds equal bilaterally | + + + | Abdomen: | Palpation: soft, nontender, no masses | + + + | Musculoskeletal:: | Extremities: ; a little audible crepitance | | | on the right; no effusions or gross meredith | | | abnormalities | + + +"
--- OUTSIDE RECORDS SUMMARY | ~2018-07-01 | XMS | Clinical Summary ---
Demographics + + + | Address | [address] | | | [place], [place] [address] | + + + | Home Phone | | + + + | Preferred Language | Unknown | + + + | Marital Status | M | + + + | Protestant Affiliation | Unknown | + + + | Race | White | + + + | Ethnic Group | Not or | + + + Author + + + | Author | [facility] | + + + | Organization | [facility] | + + + | Address | [address] | | | [place] [address] | + + + | Phone | Unavailable | + + + Care Team Providers + +------+ + | Care Kaiako Kura [place] Name | Role | Phone | + +------+ + | Pamela Nelson MD, FACOG | PCP | | + +------+ + Conditions or Problems +---------+---------+---------+---------+---------+---------+---------+---------+---------+ | Problem | Problem | Onset | Status | Entry | Provide | Comment | Standar | Annotat | | Name | Code | Date | | Date | r | | d | e | | | | | | | | | Descrip | | | | | | | | | | tion | | +---------+---------+---------+---------+---------+---------+---------+---------+---------+ | INCONCL | [id number] | | Active | | Elizabe | | Inconcl | | | USIVE | | | | | th | | usive | | | MAMMOGR | (SNOMED | | | | Sanchez | | evaluat | | | AM | CT) | | | | [facility] | | ion | | | | | | | | | | finding | | +---------+---------+---------+---------+---------+---------+---------+---------+---------+ | MENOPAU | Z78.0 | | Active | | Anca | | Asympto | | | SE, | (ICD-10 | / | | | [place] | | matic | | | SURVEIL | -CM) | | | | CCMA | | menopau | | | [place] | | | | | | | [place] | | | | | | | | | | state | | +---------+---------+---------+---------+---------+---------+---------+---------+---------+ | MAMMOGR | [id number] | | Active | | Anca | | Screeni | | | AM | 2 | /29 | | /29 | [place] | | ng | | | YEARLY | (SNOMED | | | | [facility]MA | | mammogr | | | SCREENI | CT) | | | | | | aphy | | | NG | | | | | | | | | +---------+---------+---------+---------+---------+---------+---------+---------+---------+ | OTHER | [id number] | | Inactiv | | Crystal | | Screeni | | | SCREENI | 2 | /17 | e | /17 | Denice | | ng | | | NG | (SNOMED | | | | | | mammogr | | | MAMMOGR | CT) | | | | | | aphy | | | AM | | | | | | | | | +---------+---------+---------+---------+---------+---------+---------+---------+---------+ | FINGER | [id number] | | Active | | Ziggy | | Pain in | | | PAIN | 4 | /10 | | /10 | Jimi | | finger | | | | (SNOMED | | | | MD | | | | | | CT) | | | | | | | | +---------+---------+---------+---------+---------+---------+---------+---------+---------+ | MENOPAU | N95.1 | | Inactiv | | Pamela | | [place] | | | [place] | (ICD-10 | /16 | e | / | [place] | | [place] and | | | SYMP | -CM) | | | | MD | | female | | | | | | | | FACOG | | | | | | | | | | | | climact | | | | | | | | | | christiana | | | | | | | | | | states | | +---------+---------+---------+---------+---------+---------+---------+---------+---------+ | SLEEP | [id number] | | Active | | Angélica | | Obstruc | | | APNEA, | | | | | Schrein | | tive | | | OBSTRUC | (SNOMED | | | | er MD | | sleep | | | TIVE | CT) | | | | | | apnea | | | | | | | | | | syndrom | | | | | | | | | | e | | +---------+---------+---------+---------+---------+---------+---------+---------+---------+ | 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 | | Angélica | | Other | | | | (ICD-10 | /30 | | /30 | Schrein | | hyperso | | | HYPERSO | -CM) | | | | er MD | | mnia | | | MNIA | | | | | | | | | | UNSPECI | | | | | | | | | | FIED | | | | | | | | | +---------+---------+---------+---------+---------+---------+---------+---------+---------+ | PEPTC | K27.9 | | Active | | Vicki | | Peptic | | | ULCR | (ICD-10 | | | /26 | | | ulcer, | | | UNS | -CM) | | | | [place] | | site | | | ACUT/CH | | | | | [facility] | | unspeci | | | RN W/O | | | | | | | fied, | | | HEMOR | | | | | | | unspeci | | | PERF/OB | | | | | | | fied as | | | ST | | | | | | | acute | | | | | | | | | | or | | | | | | | | | | chronic | | | | | | | | | | , | | | | | | | | | | without | | | | | | | | | | | | | | | | | | | | hemorrh | | | | | | | | | | age or | | | | | | | | | | perfora | | | | | | | | | | tion | | +---------+---------+---------+---------+---------+---------+---------+---------+---------+ | DYSPHAG | R13.10 | | Active | | Valerie | | Dysphag | | | IA | (ICD-10 | | | /10 | [place] | | ia, | | | UNSPECI | -CM) | | | | k | | unspeci | | | FIED | | | | | | | fied | | +---------+---------+---------+---------+---------+---------+---------+---------+---------+ | SPECIAL | Z12.11 | | Active | | Vicki | | Encount | | | | (ICD-10 | | | /03 | | | er for | | | SCREENI | -CM) | | | | [place] | | screeni | | | NG FOR | | | | | CCMA | | ng for | | | MALIGNA | | | | | | | maligna | | | NT | | | | | | | nt | | | NEOPLAS | | | | | | | neoplas | | | MS | | | | | | | m of | | | COLON | | | | | | | colon | | +---------+---------+---------+---------+---------+---------+---------+---------+---------+ | OTHER | [id number] | | Active | | Pamela | | Screeni | | | SCREENI | 2 | / | | / | Omar | | ng | | | NG | (SNOMED | | | | MD | | mammogr | | | MAMMOGR | CT) | | | | FACOG | | aphy | | | AM | | | | | | | | | +---------+---------+---------+---------+---------+---------+---------+---------+---------+ | METRORR | [id number] | | Active | | Pamela | | Interme | | | HAGIA | 3 | / | | / | Omar | | nstrual | | | | (SNOMED | | | | MD | | | | | | CT) | | | | FACOG | | bleedin | | | | | | | | | | g - | | | | | | | | | | irregul | | | | | | | | | | ar | | +---------+---------+---------+---------+---------+---------+---------+---------+---------+ | PERIMEN | [id number] | | Active | | Pamela | | 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 | | | | (SNOMED | | | | MD | | | | | SYNDROM | CT) | | | | FACOG | | disorde | | | E | | | | | | | r | | +---------+---------+---------+---------+---------+---------+---------+---------+---------+ | LESION, | [id number] | | Active | | Phoebe | | Lesion | | | VULVA | | / | | / | Kit[place] | | of | | | | (SNOMED | | | | | | vulva | | | | CT) | | | | | | | | +---------+---------+---------+---------+---------+---------+---------+---------+---------+ | SCREENI | [id number] | | Active | | Phoebe | | Screeni | | | NG FOR | | | | | [place] | | ng for | | | MALIGNA | (SNOMED | | | | | | maligna | | | NT | CT) | | | | | | nt | | | NEOPLAS | | | | | | | neoplas | | | M OF | | | | | | | m of | | | THE | | | | | | | cervix | | | CERVIX | | | | | | | | | +---------+---------+---------+---------+---------+---------+---------+---------+---------+ | ROUTINE | [id number] | | Active | | Phoebe | | Gynecol | | | | | | | | Kit[place] | | ogic | | | GYNECOL | (SNOMED | | | | | | examina | | | OGICAL | CT) | | | | | | tion | | | EXAMINA | | | | | | | | | | TION | | | | | | | | | +---------+---------+---------+---------+---------+---------+---------+---------+---------+ Medications + + + + + + + + | Medication | Instructio | Start Date | Stop Date | Generic | NDC | Provider | | | ns | | | Name | | | + + + + + + + + | FOLIC ACID | | | | FOLIC ACID | | Anca | | | | | | | | [facility] | | | | | | | | CCMA | + + + + + + + + | SEASONIQUE | by mouth | | | LEVONORGES | [id number] | Phoebe | | 0.15-0.03 | one time | | | T-ETH | 7 | [place] | | &0.01 MG | per day | | | ESTRAD | | | | TABS | | | | -DAY | | | + + + + + + + + | SUPREP | as | | | NA | [id number] | Vicki | | BOWEL PREP | directed | | | SULFATE-K | 1 | [place] | | KIT | | | | SULFATE-MG | | CCMA | | 17.5-3.13- | | | | SULF | | | | 1.6 | | | | | | | | GM/180ML | | | | | | | | SOLN | | | | | | | + + + + + + + + | PROTONIX | | | | PANTOPRAZO | [id number] | Vicki | | 40 MG TBEC | | | | LE SODIUM | 1 | [place] | | | | | | | | CCMA | + + + + + + + + | LOESTRIN | 1 qd | | | NORETHIN | [id number] | Pamela | | 24 FE 1-20 | | | | TATIANNA-ETH | 4 | Omar MD | | MG-MCG | | | | ESTRAD-FE | | FACOG | | ORAL | | | | | | | | TABLET | | | | | | | + + + + + + + + | METHOTREXA | 6 tablets | | | METHOTREXA | [id number] | Anca | | TE 2.5 MG | by mouth | | | TE SODIUM | 5 | [place] | | TABS | once | | | | | CCMA | | | weekly | | | | | | + + + + + + + + | SEASONIQUE | by mouth | | | LEVONORGES | [id number] | Pamela | | 0.15-0.03 | one time | | | T-ETH | 7 | Omar MD | | &0.01 MG | per day | | | ESTRAD | | FACOG | | TABS | | | | 91-DAY | | | + + + + + + + + | AMLODIPINE | | | | AMLODIPINE | [id number] | Crystal | | BESYLATE | | | | BESYLATE | 2 | Denice | | 5 MG TABS | | | | | | | + + + + + + + + | TRIVORA | 1 QD | | | LEVONORG-E | [id number] | Pamela | | () TABS | | | | TH ESTRAD | 6 | Omar SY | | | | | | TRIPHASIC | | FACOG | + + + + + + + + | LISINOPRIL | 1 po QD | | | LISINOPRIL | [id number] | Crystal | | -HYDROCHLO | | | | -HYDROCHLO | 1 | Denice | | ROTHIAZIDE | | | | ROTHIAZIDE | | | | 20-12.5 | | | | | | | | MG TABS | | | | | | | + + + + + + + + | ACTIVELLA | by mouth | | | ESTRADIOL- | [id number] | Pamela | | 0.5-0.1 MG | one time | | | NORETHINDR | 1 | Omar SY | | TABS | per day | | | ONE ACET | | FACOG | + + + + + + + + | LOSARTAN | 1 .by | | | LOSARTAN | [id number] | Pamela | | POTASSIUM- | mouth .one | | | POTASSIUM- | 2 | Omar MD | | HCTZ | time per | | | HCTZ | | FACOG | | 100-25 MG | day | | | | | | | TABS | | | | | | | + + + + + + + + | ACTIVELLA | by mouth | | | ESTRADIOL- | [id number] | Pamela | | 0.5-0.1 MG | one time | | | NORETHINDR | 1 | Omar MD | | TABS | per day | | | ONE ACET | | FACOG | + + + + + + + + | PRAVASTATI | 1 PO QD | | | PRAVASTATI | [id number] | Bernard Black | | N SODIUM | | | | N SODIUM | 0 | MD | | 40 MG TABS | | | | | | | + + + + + + + + | LISINOPRIL | 1 po QD | | | LISINOPRIL | [id number] | Bernard Black | | -HYDROCHLO | | | | -HYDROCHLO | 1 | MD | | ROTHIAZIDE | | | | ROTHIAZIDE | | | | 20-12.5 | | | | | | | | MG TABS | | | | | | | + + + + + + + + | SUPREP | as | | | NA | [id number] | Petar | | BOWEL PREP | directed | | | SULFATE-K | 1 | Casey SY | | KIT | | | | SULFATE-MG | | | | 17.5-3.13- | | | | SULF | | | | 1.6 | | | | | | | | GM/180ML | | | | | | | | SOLN | | | | | | | + + + + + + + + | LOESTRIN | 1 qd | | | NORETHIN | [id number] | Pamela | | 24 FE 1-20 | | | | TATIANNA-ETH | 4 | Omar SY | | MG-MCG | | | | ESTRAD-FE | | FACOG | | ORAL | | | | | | | | TABLET | | | | | | | + + + + + + + + | TRIVORA | 1 QD | | | LEVOROSENDORG-E | [id number] | Pamela | | () TABS | | | | TH ESTRAD | 6 | Omar SY | | | | | | TRIPHASIC | | FACOG | + + + + + + + + Medications Administered No information available. Allergies, Adverse Reactions, Alerts + + + + +--------+ + | Allergy Name | Reaction | Start Date | Severity | Status | Provider | | | Description | | | | | + + + + +--------+ + | NKDA | | | Critical | | Pamela Nelson | | | | | | | FACOG | + + + + +--------+ + Results +------+------+-------+------+-------+------+ + | Date | Name | Value | Unit | Range | Flag | Descriptio | | | | | | | | n | +------+------+-------+------+-------+------+ + + + | Office Visit: Gynecology Visit- Annual Exam | + + + +--------+------+---+---+---+ + | | MEDS | Done | | | | Documentat | | | REVIEW | | | | | ion of | | | | | | | | current | | | | | | | | medication | | | | | | | | s | | | | | | | | (procedure | | | | | | | | ) | + +--------+------+---+---+---+ + + + | Lab Report: Comprehensive Metabolic Panel | + + + + +--------+ + +---+ + | | SGPT (ALT) | 47 | U/L | 12-78 | N | alanine | | | | | | | | aminotrans | | | | | | | | ferase | | | | | | | | (SGPT), | | | | | | | | serum | + + +--------+ + +---+ + | | SGOT (AST) | 24 | U/L | 12-37 | N | aspartate | | | | | | | | aminotrans | | | | | | | | ferase | | | | | | | | (SGOT), | | | | | | | | serum | + + +--------+ + +---+ + | | ALK PHOS | 109 | U/L | 40-126 | N | alkaline | | | | | | | | phosphatas | | | | | | | | e, serum | + + +--------+ + +---+ + | | BILI TOTAL | 0.5 | mg/dL | 0.1-1.0 | N | bilirubin, | | | | | | | | serum, | | | | | | | | total | + + +--------+ + +---+ + | | A/G RATIO | 1.1 | | 0.8-1.8 | N | albumin/gl | | | | | | | | obulin | | | | | | | | ratio, | | | | | | | | serum | + + +--------+ + +---+ + | | GLOBULIN | 3.3 | g/dL | 2.2-4.0 | N | globulins, | | | TOT | | | | | serum, | | | | | | | | total | + + +--------+ + +---+ + | | ALBUMIN | 3.7 | g/dL | 3.4-5.0 | N | albumin, | | | | | | | | serum | + + +--------+ + +---+ + | | PROTEIN, | 7.0 | g/dL | 6.4-8.2 | N | protein, | | | TOT | | | | | total, | | | | | | | | serum | + + +--------+ + +---+ + | | CALCIUM | 8.6 | mg/dL | 8.5-10.1 | N | calcium, | | | | | | | | serum | + + +--------+ + +---+ + | | GFRC | >60 | mL/min/1.7 | 60- | N | Glomerular | | | | | 3m2 | | | | | | | | | | | Filtration | | | | | | | | Rate | | | | | | | | Calculatio | | | | | | | | n | + + +--------+ + +---+ + | | BUN/CREAT | 22.4 % | | 12.0-20.0 | H | urea | | | | | | | | nitrogen/c | | | | | | | | reatinine | | | | | | | | ratio, | | | | | | | | serum | + + +--------+ + +---+ + | | CREATININE | 0.85 | mg/dL | 0.40-1.00 | N | creatinine | | | | | | | | , serum | + + +--------+ + +---+ + | | BUN | 19 | mg/dL | 8-24 | N | urea | | | | | | | | nitrogen, | | | | | | | | blood | + + +--------+ + +---+ + | | GLUCOSE | 158 | mg/dL | 70-99 | H | blood | | | SER | | | | | glucose | + + +--------+ + +---+ + | | ANION GAP | 7 | mmol/L | 6-16 | N | anion gap, | | | | | | | | serum | + + +--------+ + +---+ + | | CO2 | 31 | mmol/L | 21-32 | N | carbon | | | | | | | | dioxide, | | | | | | | | venous | | | | | | | | blood | + + +--------+ + +---+ + | | CHLORIDE | 104 | mmol/L | 98-108 | N | chloride, | | | | | | | | serum | + + +--------+ + +---+ + | | POTASSIUM | 3.6 | mmol/L | 3.5-5.5 | N | potassium, | | | | | | | | serum | + + +--------+ + +---+ + | | SODIUM | 142 | mmol/L | 136-145 | N | sodium, | | | | | | | | serum | + + +--------+ + +---+ + + + | Lab Report: CBC with Auto Diff | + + + + + + + +---+ + | | ZZ-GE-UNK | 0.00 K/mm3 | | 0.00-0.02 | N | GE use | | | | | | | | only - for | | | | | | | | LinkLogic | | | | | | | | import | | | | | | | | when terms | | | | | | | | are not | | | | | | | | otherwise | | | | | | | | specified | + + + + + +---+ + | | ABSOLUTE | 0.06 | 10*3/uL | 0.00-0.23 | N | Absolute | | | BAS | | | | | Basophils | + + + + + +---+ + | | EOS ABSLT | 0.29 | 10*3/uL | 0.00-0.68 | N | Eosinophil | | | | | | | | Absolute | | | | | | | | Count | + + + + + +---+ + | | ABSOLUTE | 0.45 | 10*3/uL | 0.16-1.47 | N | Absolute | | | MON | | | | | Monocytes | + + + + + +---+ + | | LYMPHOCYTA | 1.91 | 10*3/uL | 0.84-5.20 | N | lymphocyte | | | BS | | | | | s, | | | | | | | | absolute | + + + + + +---+ + | | ANC | 2.06 | 10*3/mm3 | 1.96-9.15 | N | neutrophil | | | | | | | | count, | | | | | | | | blood | + + + + + +---+ + | | NRBCS/100W | 0.0 | % | 0.0-0.2 | N | nucleated | | | BC | | | | | red blood | | | | | | | | cells as | | | | | | | | percent of | | | | | | | | blood | | | | | | | | leukocytes | + + + + + +---+ + | | IMM GRANU | 0 | % | 0-1 | N | immature | | | % | | | | | granulocyt | | | | | | | | es, | | | | | | | | percentage | | | | | | | | of total | | | | | | | | cells, | | | | | | | | blood | + + + + + +---+ + | | BASOPHIL % | 1 | % | 0-2 | N | basophils | | | | | | | | as percent | | | | | | | | of blood | | | | | | | | leukocytes | + + + + + +---+ + | | EOSINOPHIL | 6 | % | 0-6 | N | eosinophil | | | % | | | | | s as | | | | | | | | percent of | | | | | | | | blood | | | | | | | | leukocytes | + + + + + +---+ + | | MONOCYTE % | 9 | % | 4-13 | N | monocytes | | | | | | | | as percent | | | | | | | | of blood | | | | | | | | leukocytes | + + + + + +---+ + | | LYMPHS % | 40 | % | 21-46 | N | lymphocyte | | | | | | | | s as | | | | | | | | percent of | | | | | | | | blood | | | | | | | | leukocytes | + + + + + +---+ + | | PMN % | 43 | % | 41-73 | N | neutrophil | | | | | | | | s as | | | | | | | | percent of | | | | | | | | blood | | | | | | | | leukocytes | + + + + + +---+ + | | MPV | 9.9 | fL | 9.1-12.4 | N | mean | | | | | | | | platelet | | | | | | | | volume | + + + + + +---+ + | | PLATELETS | 240 | 10*3/mm3 | 150-400 | N | platelet | | | | | | | | count | + + + + + +---+ + | | RDW | 12.8 | % | 11.7-14.2 | N | red blood | | | | | | | | cell | | | | | | | | distributi | | | | | | | | on width | + + + + + +---+ + | | RDW-SD | 42.0 | fL | 35.1-46.3 | N | red blood | | | | | | | | cell | | | | | | | | distributi | | | | | | | | on width, | | | | | | | | size | | | | | | | | density | + + + + + +---+ + | | MCHC RBC | 34.5 | g/dL | 31.5-36.5 | N | mean | | | | | | | | corpuscula | | | | | | | | r | | | | | | | | hemoglobin | | | | | | | | | | | | | | | | concentrat | | | | | | | | ion, RBC | + + + + + +---+ + | | MCH | 31.4 | pg | 26.0-34.0 | N | mean | | | | | | | | corpuscula | | | | | | | | r | | | | | | | | hemoglobin | | | | | | | | , RBC | + + + + + +---+ + | | MCV | 91 | fL | 80-100 | N | mean | | | | | | | | corpuscula | | | | | | | | r volume, | | | | | | | | RBC | + + + + + +---+ + | | HCT | 34.5 | % | 33.0-51.0 | N | hematocrit | | | | | | | | , blood | + + + + + +---+ + | | HGB | 11.9 | g/dL | 11.5-16.0 | N | hemoglobin | | | | | | | | , blood | + + + + + +---+ + | | RBC | 3.79 | 10*6/mm3 | 3.80-5.20 | L | erythrocyt | | | | | | | | e (RBC) | | | | | | | | count | + + + + + +---+ + | | WBC | 4.78 | 10*3/mm3 | 4.00-11.30 | N | leukocyte | | | | | | | | count, | | | | | | | | blood | + + + + + +---+ + + + | Rx Refill: eRx Request for ACTIVELLA 0.5-0.1 MG TABLET | + + + +--------+ +---+---+---+ + | | ESM_RR | [id number] | | | B | e-scripts | | | | [id number]`A | | | | messenger | | | | CTIVELLA | | | | refill | | | | 0.5-0.1 MG | | | | request | | | | | | | | | | | | TABLET`0.5 | | | | | | | | -0.1``28 | | | | | | | | Tablet`28` | | | | | | | | TAKE ONE | | | | | | | | TABLET BY | | | | | | | | MOUTH | | | | | | | | DAILY``11` | | | | | | | | 0`12[birth year]01[birth year]19 | | | | | | | | ` | | | | | | | | 017`Bernard | | | | | | | | Brendon - | | | | | | | | Kemar*` | | | | | | | | [phone] | | | | | | | | `[id number] | | | | | | | | 11``ESTRAD | | | | | | | | IOL-HECTOR | | | | | | | | 0.5-0.1 | | | | | | | | MG TB | | | | | | | | Quantity: | | | | | | | | 28 Tablet | | | | | | | | | | | | | | | | Instructio | | | | | | | | ns: TAKE | | | | | | | | ONE TABLET | | | | | | | | BY MOUTH | | | | | | | | DAILY | | | | | + +--------+ +---+---+---+ + + + | Lab Report: Comprehensive Metabolic Panel, Coronary Risk Panel, Thyroid ... | + + + + +---------+ + +---+ + | | TSH ULTRA | 3.314 | u[iU]/mL | 0.360-4.80 | N | thyroid | | | | | | 0 | | stimulatin | | | | | | | | g hormone | | | | | | | | (TSH), | | | | | | | | ultra | | | | | | | | sensitive | + + +---------+ + +---+ + | | C-LDL/C-HD | 2.2 | | | N | LDL/HDL | | | L | | | | | ratio, | | | | | | | | serum | + + +---------+ + +---+ + | | CHOL/HDL | 3.5 | | | N | cholestero | | | | | | | | l/HDL | | | | | | | | ratio, | | | | | | | | serum | + + +---------+ + +---+ + | | VLDL | 17 | mg/dL | 6-32 | N | very low | | | | | | | | density | | | | | | | | lipoprotei | | | | | | | | ns | + + +---------+ + +---+ + | | LDL | 127 | mg/dL | <110 | H | Cholestero | | | | | | | | l in LDL | | | | | | | | [Mass/volu | | | | | | | | me] in | | | | | | | | Serum or | | | | | | | | Plasma | + + +---------+ + +---+ + | | HDL | 57 | mg/dL | >39 | N | HDL | | | | | | | | cholestero | | | | | | | | l, serum | + + +---------+ + +---+ + | | TRIGLYCERI | 88 | mg/dL | 30-160 | N | triglyceri | | | DE | | | | | de, serum, | | | | | | | | fasting | + + +---------+ + +---+ + | | CHOLESTERO | 202 | mg/dL | 50-200 | H | cholestero | | | L | | | | | l, serum | + + +---------+ + +---+ + | | ZZ-GE-UNK | Fasting | | | N | GE use | | | | | | | | only - for | | | | | | | | LinkLogic | | | | | | | | import | | | | | | | | when terms | | | | | | | | are not | | | | | | | | otherwise | | | | | | | | specified | + + +---------+ + +---+ + | | SGPT (ALT) | 47 | U/L | 12-78 | N | alanine | | | | | | | | aminotrans | | | | | | | | ferase | | | | | | | | (SGPT), | | | | | | | | serum | + + +---------+ + +---+ + | | SGOT (AST) | 22 | U/L | 12-37 | N | aspartate | | | | | | | | aminotrans | | | | | | | | ferase | | | | | | | | (SGOT), | | | | | | | | serum | + + +---------+ + +---+ + | | ALK PHOS | 101 | U/L | 40-126 | N | alkaline | | | | | | | | phosphatas | | | | | | | | e, serum | + + +---------+ + +---+ + | | BILI TOTAL | 0.6 | mg/dL | 0.1-1.0 | N | bilirubin, | | | | | | | | serum, | | | | | | | | total | + + +---------+ + +---+ + | | A/G RATIO | 1.2 | | 0.8-1.8 | N | albumin/gl | | | | | | | | obulin | | | | | | | | ratio, | | | | | | | | serum | + + +---------+ + +---+ + | | GLOBULIN | 3.2 | g/dL | 2.2-4.0 | N | globulins, | | | TOT | | | | | serum, | | | | | | | | total | + + +---------+ + +---+ + | | ALBUMIN | 3.8 | g/dL | 3.4-5.0 | N | albumin, | | | | | | | | serum | + + +---------+ + +---+ + | | PROTEIN, | 7.0 | g/dL | 6.4-8.2 | N | protein, | | | TOT | | | | | total, | | | | | | | | serum | + + +---------+ + +---+ + | | CALCIUM | 8.8 | mg/dL | 8.5-10.1 | N | calcium, | | | | | | | | serum | + + +---------+ + +---+ + | | GFRC | >60 | mL/min/1.7 | 60- | N | Glomerular | | | | | 3m2 | | | | | | | | | | | Filtration | | | | | | | | Rate | | | | | | | | Calculatio | | | | | | | | n | + + +---------+ + +---+ + | | BUN/CREAT | 28.9 % | | 12.0-20.0 | H | urea | | | | | | | | nitrogen/c | | | | | | | | reatinine | | | | | | | | ratio, | | | | | | | | serum | + + +---------+ + +---+ + | | CREATININE | 0.83 | mg/dL | 0.40-1.00 | N | creatinine | | | | | | | | , serum | + + +---------+ + +---+ + | | BUN | 24 | mg/dL | 8-24 | N | urea | | | | | | | | nitrogen, | | | | | | | | blood | + + +---------+ + +---+ + | | GLUCOSE | 134 | mg/dL | 70-99 | H | blood | | | SER | | | | | glucose | + + +---------+ + +---+ + | | ANION GAP | 11 | mmol/L | 6-16 | N | anion gap, | | | | | | | | serum | + + +---------+ + +---+ + | | CO2 | 30 | mmol/L | 21-32 | N | carbon | | | | | | | | dioxide, | | | | | | | | venous | | | | | | | | blood | + + +---------+ + +---+ + | | CHLORIDE | 104 | mmol/L | 98-108 | N | chloride, | | | | | | | | serum | + + +---------+ + +---+ + | | POTASSIUM | 3.4 | mmol/L | 3.5-5.5 | L | potassium, | | | | | | | | serum | + + +---------+ + +---+ + | | SODIUM | 145 | mmol/L | 136-145 | N | sodium, | | | | | | | | serum | + + +---------+ + +---+ + + + | Lab Report: C-REACTIVE PROTEIN, EXT RANGE | + + + +-----+-------+-------+ +---+ + | | CRP | 1.070 | mg/dL | 0.000-0.30 | H | C-reactive | | | | | | 0 | | protein, | | | | | | | | serum | + +-----+-------+-------+ +---+ + + + | Lab Report: Comprehensive Metabolic Panel | + + + + +--------+ + +---+ + | | SGPT (ALT) | 61 | U/L | 12-78 | N | alanine | | | | | | | | aminotrans | | | | | | | | ferase | | | | | | | | (SGPT), | | | | | | | | serum | + + +--------+ + +---+ + | | SGOT (AST) | 31 | U/L | 12-37 | N | aspartate | | | | | | | | aminotrans | | | | | | | | ferase | | | | | | | | (SGOT), | | | | | | | | serum | + + +--------+ + +---+ + | | ALK PHOS | 99 | U/L | 40-126 | N | alkaline | | | | | | | | phosphatas | | | | | | | | e, serum | + + +--------+ + +---+ + | | BILI TOTAL | 0.5 | mg/dL | 0.1-1.0 | N | bilirubin, | | | | | | | | serum, | | | | | | | | total | + + +--------+ + +---+ + | | A/G RATIO | 1.1 | | 0.8-1.8 | N | albumin/gl | | | | | | | | obulin | | | | | | | | ratio, | | | | | | | | serum | + + +--------+ + +---+ + | | GLOBULIN | 3.4 | g/dL | 2.2-4.0 | N | globulins, | | | TOT | | | | | serum, | | | | | | | | total | + + +--------+ + +---+ + | | ALBUMIN | 3.6 | g/dL | 3.4-5.0 | N | albumin, | | | | | | | | serum | + + +--------+ + +---+ + | | PROTEIN, | 7.0 | g/dL | 6.4-8.2 | N | protein, | | | TOT | | | | | total, | | | | | | | | serum | + + +--------+ + +---+ + | | CALCIUM | 8.6 | mg/dL | 8.5-10.1 | N | calcium, | | | | | | | | serum | + + +--------+ + +---+ + | | GFRC | >60 | mL/min/1.7 | 60- | N | Glomerular | | | | | 3m2 | | | | | | | | | | | Filtration | | | | | | | | Rate | | | | | | | | Calculatio | | | | | | | | n | + + +--------+ + +---+ + | | BUN/CREAT | 28.1 % | | 12.0-20.0 | H | urea | | | | | | | | nitrogen/c | | | | | | | | reatinine | | | | | | | | ratio, | | | | | | | | serum | + + +--------+ + +---+ + | | CREATININE | 0.89 | mg/dL | 0.40-1.00 | N | creatinine | | | | | | | | , serum | + + +--------+ + +---+ + | | BUN | 25 | mg/dL | 8-24 | H | urea | | | | | | | | nitrogen, | | | | | | | | blood | + + +--------+ + +---+ + | | GLUCOSE | 200 | mg/dL | 70-99 | H | blood | | | SER | | | | | glucose | + + +--------+ + +---+ + | | ANION GAP | 9 | mmol/L | 6-16 | N | anion gap, | | | | | | | | serum | + + +--------+ + +---+ + | | CO2 | 30 | mmol/L | 21-32 | N | carbon | | | | | | | | dioxide, | | | | | | | | venous | | | | | | | | blood | + + +--------+ + +---+ + | | CHLORIDE | 103 | mmol/L | 98-108 | N | chloride, | | | | | | | | serum | + + +--------+ + +---+ + | | POTASSIUM | 3.7 | mmol/L | 3.5-5.5 | N | potassium, | | | | | | | | serum | + + +--------+ + +---+ + | | SODIUM | 142 | mmol/L | 136-145 | N | sodium, | | | | | | | | serum | + + +--------+ + +---+ + + + | Lab Report: CBC with Auto Diff, Erythro Sed Rate, Tommyren | + + + + + + + +---+ + | | ESR | 43 | mm/h | 0-20 | H | erythrocyt | | | | | | | | e | | | | | | | | sedimentat | | | | | | | | ion rate | + + + + + +---+ + | | ZZ-GE-UNK | 0.00 K/mm3 | | 0.00-0.02 | N | GE use | | | | | | | | only - for | | | | | | | | LinkLogic | | | | | | | | import | | | | | | | | when terms | | | | | | | | are not | | | | | | | | otherwise | | | | | | | | specified | + + + + + +---+ + | | ABSOLUTE | 0.04 | 10*3/uL | 0.00-0.23 | N | Absolute | | | BAS | | | | | Basophils | + + + + + +---+ + | | EOS ABSLT | 0.21 | 10*3/uL | 0.00-0.68 | N | Eosinophil | | | | | | | | Absolute | | | | | | | | Count | + + + + + +---+ + | | ABSOLUTE | 0.38 | 10*3/uL | 0.16-1.47 | N | Absolute | | | MON | | | | | Monocytes | + + + + + +---+ + | | LYMPHOCYTA | 1.69 | 10*3/uL | 0.84-5.20 | N | lymphocyte | | | BS | | | | | s, | | | | | | | | absolute | + + + + + +---+ + | | ANC | 1.92 | 10*3/mm3 | 1.96-9.15 | L | neutrophil | | | | | | | | count, | | | | | | | | blood | + + + + + +---+ + | | NRBCS/100W | 0.0 | % | 0.0-0.2 | N | nucleated | | | BC | | | | | red blood | | | | | | | | cells as | | | | | | | | percent of | | | | | | | | blood | | | | | | | | leukocytes | + + + + + +---+ + | | IMM GRANU | 1 | % | 0-1 | N | immature | | | % | | | | | granulocyt | | | | | | | | es, | | | | | | | | percentage | | | | | | | | of total | | | | | | | | cells, | | | | | | | | blood | + + + + + +---+ + | | BASOPHIL % | 1 | % | 0-2 | N | basophils | | | | | | | | as percent | | | | | | | | of blood | | | | | | | | leukocytes | + + + + + +---+ + | | EOSINOPHIL | 5 | % | 0-6 | N | eosinophil | | | % | | | | | s as | | | | | | | | percent of | | | | | | | | blood | | | | | | | | leukocytes | + + + + + +---+ + | | MONOCYTE % | 9 | % | 4-13 | N | monocytes | | | | | | | | as percent | | | | | | | | of blood | | | | | | | | leukocytes | + + + + + +---+ + | | LYMPHS % | 40 | % | 21-46 | N | lymphocyte | | | | | | | | s as | | | | | | | | percent of | | | | | | | | blood | | | | | | | | leukocytes | + + + + + +---+ + | | PMN % | 45 | % | 41-73 | N | neutrophil | | | | | | | | s as | | | | | | | | percent of | | | | | | | | blood | | | | | | | | leukocytes | + + + + + +---+ + | | MPV | 9.3 | fL | 9.1-12.4 | N | mean | | | | | | | | platelet | | | | | | | | volume | + + + + + +---+ + | | PLATELETS | 231 | 10*3/mm3 | 150-400 | N | platelet | | | | | | | | count | + + + + + +---+ + | | RDW | 14.3 | % | 11.7-14.2 | H | red blood | | | | | | | | cell | | | | | | | | distributi | | | | | | | | on width | + + + + + +---+ + | | RDW-SD | 45.1 | fL | 35.1-46.3 | N | red blood | | | | | | | | cell | | | | | | | | distributi | | | | | | | | on width, | | | | | | | | size | | | | | | | | density | + + + + + +---+ + | | MCHC RBC | 34.8 | g/dL | 31.5-36.5 | N | mean | | | | | | | | corpuscula | | | | | | | | r | | | | | | | | hemoglobin | | | | | | | | | | | | | | | | concentrat | | | | | | | | ion, RBC | + + + + + +---+ + | | MCH | 30.2 | pg | 26.0-34.0 | N | mean | | | | | | | | corpuscula | | | | | | | | r | | | | | | | | hemoglobin | | | | | | | | , RBC | + + + + + +---+ + | | MCV | 87 | fL | 80-100 | N | mean | | | | | | | | corpuscula | | | | | | | | r volume, | | | | | | | | RBC | + + + + + +---+ + | | HCT | 34.5 | % | 33.0-51.0 | N | hematocrit | | | | | | | | , blood | + + + + + +---+ + | | HGB | 12.0 | g/dL | 11.5-16.0 | N | hemoglobin | | | | | | | | , blood | + + + + + +---+ + | | RBC | 3.97 | 10*6/mm3 | 3.80-5.20 | N | erythrocyt | | | | | | | | e (RBC) | | | | | | | | count | + + + + + +---+ + | | WBC | 4.26 | 10*3/mm3 | 4.00-11.30 | N | leukocyte | | | | | | | | count, | | | | | | | | blood | + + + + + +---+ + + + | Lab Report: Cryoglobulin | + + + + + +---+-----+---+ + | | ZZ-GE-UNK | Negative | | NEG | N | GE use | | | | | | | | only - for | | | | | | | | LinkLogic | | | | | | | | import | | | | | | | | when terms | | | | | | | | are not | | | | | | | | otherwise | | | | | | | | specified | + + + +---+-----+---+ + + + | Lab Report: Rheumatoid Factor, Serum, Antinuclear Antibody Screen | + + + + + +---+ +---+ + | | ELLA | Negative | | Negative | N | antinuclea | | | | | | | | r antibody | + + + +---+ +---+ + | | RF SCREEN | Negative | | Negative | N | rheumatoid | | | QL | | | | | factor, | | | | | | | | screen, | | | | | | | | qualitativ | | | | | | | | e | + + + +---+ +---+ + + + | Lab Report: C3, C4, Hepatitis B Surface Antigen, HCV, ANCA Screen, IFA, ... | + + + + + +-------+ +---+ + | | HEP C AB | Non | | NR | N | hepatitis | | | | Reactive | | | | C | | | | | | | | antibody, | | | | | | | | serum | + + + +-------+ +---+ + | | HBSAG | Non | | NR | N | hepatitis | | | | Reactive | | | | B surface | | | | | | | | antigen | + + + +-------+ +---+ + | | C4 | 24.8 | mg/dL | 15.0-55.0 | N | complement | | | COMPLIMEN | | | | | C4, serum | + + + +-------+ +---+ + | | C3 | 140 | mg/dL | 90-200 | N | complement | | | COMPLIMEN | | | | | C3, serum | + + + +-------+ +---+ + + + | Lab Report: C-REACTIVE PROTEIN, EXT RANGE | + + + +-----+-------+-------+ +---+ + | | CRP | 0.761 | mg/dL | 0.000-0.30 | H | C-reactive | | | | | | 0 | | protein, | | | | | | | | serum | + +-----+-------+-------+ +---+ + + + | Lab Report: CBC with Auto Diff, Erythro Sed Rate, Tommyren | + + + + +------+ + +---+ + | | ESR | 46 | mm/h | 0-20 | H | erythrocyt | | | | | | | | e | | | | | | | | sedimentat | | | | | | | | ion rate | + + +------+ + +---+ + | | ABSOLUTE | 0.05 | 10*3/uL | 0.00-0.23 | N | Absolute | | | BAS | | | | | Basophils | + + +------+ + +---+ + | | EOS ABSLT | 0.12 | 10*3/uL | 0.00-0.68 | N | Eosinophil | | | | | | | | Absolute | | | | | | | | Count | + + +------+ + +---+ + | | ABSOLUTE | 0.29 | 10*3/uL | 0.16-1.47 | N | Absolute | | | MON | | | | | Monocytes | + + +------+ + +---+ + | | LYMPHOCYTA | 1.36 | 10*3/uL | 0.84-5.20 | N | lymphocyte | | | BS | | | | | s, | | | | | | | | absolute | + + +------+ + +---+ + | | ANC | 2.39 | 10*3/mm3 | 1.96-9.15 | N | neutrophil | | | | | | | | count, | | | | | | | | blood | + + +------+ + +---+ + | | NRBCS/100W | 0.0 | % | 0.0-0.2 | N | nucleated | | | BC | | | | | red blood | | | | | | | | cells as | | | | | | | | percent of | | | | | | | | blood | | | | | | | | leukocytes | + + +------+ + +---+ + | | IMM GRANU | 1 | % | 0-1 | N | immature | | | % | | | | | granulocyt | | | | | | | | es, | | | | | | | | percentage | | | | | | | | of total | | | | | | | | cells, | | | | | | | | blood | + + +------+ + +---+ + | | BASOPHIL % | 1 | % | 0-2 | N | basophils | | | | | | | | as percent | | | | | | | | of blood | | | | | | | | leukocytes | + + +------+ + +---+ + | | EOSINOPHIL | 3 | % | 0-6 | N | eosinophil | | | % | | | | | s as | | | | | | | | percent of | | | | | | | | blood | | | | | | | | leukocytes | + + +------+ + +---+ + | | MONOCYTE % | 7 | % | 4-13 | N | monocytes | | | | | | | | as percent | | | | | | | | of blood | | | | | | | | leukocytes | + + +------+ + +---+ + | | LYMPHS % | 32 | % | 21-46 | N | lymphocyte | | | | | | | | s as | | | | | | | | percent of | | | | | | | | blood | | | | | | | | leukocytes | + + +------+ + +---+ + | | PMN % | 56 | % | 41-73 | N | neutrophil | | | | | | | | s as | | | | | | | | percent of | | | | | | | | blood | | | | | | | | leukocytes | + + +------+ + +---+ + | | MPV | 9.9 | fL | 9.1-12.4 | N | mean | | | | | | | | platelet | | | | | | | | volume | + + +------+ + +---+ + | | PLATELETS | 237 | 10*3/mm3 | 150-400 | N | platelet | | | | | | | | count | + + +------+ + +---+ + | | RDW | 12.9 | % | 11.7-14.2 | N | red blood | | | | | | | | cell | | | | | | | | distributi | | | | | | | | on width | + + +------+ + +---+ + | | RDW-SD | 41.1 | fL | 35.1-46.3 | N | red blood | | | | | | | | cell | | | | | | | | distributi | | | | | | | | on width, | | | | | | | | size | | | | | | | | density | + + +------+ + +---+ + | | MCHC RBC | 34.3 | g/dL | 31.5-36.5 | N | mean | | | | | | | | corpuscula | | | | | | | | r | | | | | | | | hemoglobin | | | | | | | | | | | | | | | | concentrat | | | | | | | | ion, RBC | + + +------+ + +---+ + | | MCH | 29.9 | pg | 26.0-34.0 | N | mean | | | | | | | | corpuscula | | | | | | | | r | | | | | | | | hemoglobin | | | | | | | | , RBC | + + +------+ + +---+ + | | MCV | 87 | fL | 80-100 | N | mean | | | | | | | | corpuscula | | | | | | | | r volume, | | | | | | | | RBC | + + +------+ + +---+ + | | HCT | 35.3 | % | 33.0-51.0 | N | hematocrit | | | | | | | | , blood | + + +------+ + +---+ + | | HGB | 12.1 | g/dL | 11.5-16.0 | N | hemoglobin | | | | | | | | , blood | + + +------+ + +---+ + | | RBC | 4.05 | 10*6/mm3 | 3.80-5.20 | N | erythrocyt | | | | | | | | e (RBC) | | | | | | | | count | + + +------+ + +---+ + | | WBC | 4.23 | 10*3/mm3 | 4.00-11.30 | N | leukocyte | | | | | | | | count, | | | | | | | | blood | + + +------+ + +---+ + + + | Lab Report: Comprehensive Metabolic Panel | + + + + +--------+ + +---+ + | | SGPT (ALT) | 35 | U/L | 12-78 | N | alanine | | | | | | | | aminotrans | | | | | | | | ferase | | | | | | | | (SGPT), | | | | | | | | serum | + + +--------+ + +---+ + | | SGOT (AST) | 21 | U/L | 12-37 | N | aspartate | | | | | | | | aminotrans | | | | | | | | ferase | | | | | | | | (SGOT), | | | | | | | | serum | + + +--------+ + +---+ + | | ALK PHOS | 106 | U/L | 40-126 | N | alkaline | | | | | | | | phosphatas | | | | | | | | e, serum | + + +--------+ + +---+ + | | BILI TOTAL | 0.5 | mg/dL | 0.1-1.0 | N | bilirubin, | | | | | | | | serum, | | | | | | | | total | + + +--------+ + +---+ + | | A/G RATIO | 1.1 | | 0.8-1.8 | N | albumin/gl | | | | | | | | obulin | | | | | | | | ratio, | | | | | | | | serum | + + +--------+ + +---+ + | | GLOBULIN | 3.7 | g/dL | 2.2-4.0 | N | globulins, | | | TOT | | | | | serum, | | | | | | | | total | + + +--------+ + +---+ + | | ALBUMIN | 3.9 | g/dL | 3.4-5.0 | N | albumin, | | | | | | | | serum | + + +--------+ + +---+ + | | PROTEIN, | 7.6 | g/dL | 6.4-8.2 | N | protein, | | | TOT | | | | | total, | | | | | | | | serum | + + +--------+ + +---+ + | | CALCIUM | 9.1 | mg/dL | 8.5-10.1 | N | calcium, | | | | | | | | serum | + + +--------+ + +---+ + | | GFRC | >60 | mL/min/1.7 | 60- | N | Glomerular | | | | | 3m2 | | | | | | | | | | | Filtration | | | | | | | | Rate | | | | | | | | Calculatio | | | | | | | | n | + + +--------+ + +---+ + | | BUN/CREAT | 23.4 % | | 12.0-20.0 | H | urea | | | | | | | | nitrogen/c | | | | | | | | reatinine | | | | | | | | ratio, | | | | | | | | serum | + + +--------+ + +---+ + | | CREATININE | 0.77 | mg/dL | 0.40-1.00 | N | creatinine | | | | | | | | , serum | + + +--------+ + +---+ + | | BUN | 18 | mg/dL | 8-24 | N | urea | | | | | | | | nitrogen, | | | | | | | | blood | + + +--------+ + +---+ + | | GLUCOSE | 107 | mg/dL | 70-99 | H | blood | | | SER | | | | | glucose | + + +--------+ + +---+ + | | ANION GAP | 12 | mmol/L | 6-16 | N | anion gap, | | | | | | | | serum | + + +--------+ + +---+ + | | CO2 | 27 | mmol/L | 21-32 | N | carbon | | | | | | | | dioxide, | | | | | | | | venous | | | | | | | | blood | + + +--------+ + +---+ + | | CHLORIDE | 102 | mmol/L | 98-108 | N | chloride, | | | | | | | | serum | + + +--------+ + +---+ + | | POTASSIUM | 3.5 | mmol/L | 3.5-5.5 | N | potassium, | | | | | | | | serum | + + +--------+ + +---+ + | | SODIUM | 141 | mmol/L | 136-145 | N | sodium, | | | | | | | | serum | + + +--------+ + +---+ + + + | Lab Report: [id number] | + + + + +----+---+---+---+ + | | ZZ-GE-UNK | 1S | | | | GE use | | | | | | | | only - for | | | | | | | | LinkLogic | | | | | | | | import | | | | | | | | when terms | | | | | | | | are not | | | | | | | | otherwise | | | | | | | | specified | + + +----+---+---+---+ + | | MGMRESULTS | 1S | | | | Breast | | | | | | | | Mammogram | | | | | | | | screening | + + +----+---+---+---+ + + + | Lab Report: Basic Metabolic Panel | + + + + +--------+ + +---+ + | | CALCIUM | 9.2 | mg/dL | 8.5-10.1 | N | calcium, | | | | | | | | serum | + + +--------+ + +---+ + | | GFRC | >60 | mL/min/1.7 | 60- | N | Glomerular | | | | | 3m2 | | | | | | | | | | | Filtration | | | | | | | | Rate | | | | | | | | Calculatio | | | | | | | | n | + + +--------+ + +---+ + | | BUN/CREAT | 35.4 % | | 12.0-20.0 | H | urea | | | | | | | | nitrogen/c | | | | | | | | reatinine | | | | | | | | ratio, | | | | | | | | serum | + + +--------+ + +---+ + | | CREATININE | 0.79 | mg/dL | 0.40-1.00 | N | creatinine | | | | | | | | , serum | + + +--------+ + +---+ + | | BUN | 28 | mg/dL | 8-24 | H | urea | | | | | | | | nitrogen, | | | | | | | | blood | + + +--------+ + +---+ + | | GLUCOSE | 100 | mg/dL | 70-99 | H | blood | | | SER | | | | | glucose | + + +--------+ + +---+ + | | ANION GAP | 10 | mmol/L | 6-16 | N | anion gap, | | | | | | | | serum | + + +--------+ + +---+ + | | CO2 | 29 | mmol/L | 21-32 | N | carbon | | | | | | | | dioxide, | | | | | | | | venous | | | | | | | | blood | + + +--------+ + +---+ + | | CHLORIDE | 104 | mmol/L | 98-108 | N | chloride, | | | | | | | | serum | + + +--------+ + +---+ + | | POTASSIUM | 3.7 | mmol/L | 3.5-5.5 | N | potassium, | | | | | | | | serum | + + +--------+ + +---+ + | | SODIUM | 143 | mmol/L | 136-145 | N | sodium, | | | | | | | | serum | + + +--------+ + +---+ + Plan of Care + + + + | Type | Date | Detail | + + + + | Appointment | 11:00 AM | Pamela Nelson MD [facility], [id number] | | | [address], | | | | [place], [address], | | | | | + + + + | Referral | | Mammo Dig Diag-Rt | | | | Cec[facility] Scheduling, | | | | [address], | | | | [place], [address] | | | | | + + + + | Referral | | Mammo Dig Screen-Bilat | | | | Cecy | | | | Scheduling, [address] | | | | [place], [place], [place], | | | | [address] | | | | | + + + + | Referral | | Mammo Dig Screen-Bilat | | | | Col[facility] | | | | Scheduling, [address] | | | | [place], [place], [place], | | | | [address] | | | | | + + + + | Referral | | Mammo Dig Screen-Bilat | | | | Cecy | | | | [facility], [address] | | | | [place], [place], | | | | [address] | | | | | + + + + | Pending order | | TEENA HowardD Scr-Darian | + + + + | Pending order | | TEENA McgregorD Scr-Darian | + + + + | Pending order | | PAP THIN Sc + hrHPV and GNT | + + + + | Pending order | | PAP THIN Sc wi HPV If | | | | Indicated | + + + + | Pending order | | PAP THIN Sc wi HPV If | | | | Indicated | + + + + | Pending order | | CPAP Titration | + + + + | Pending order | | Sleep study | + + + + | Pending order | | PAP THIN Sc wi HPV If | | | | Indicated | + + + + | Pending order | | CBC w/ Diff - w/ platelets | + + + + | Pending order | | EGD | + + + + | Pending order | | Prothrombin Time | + + + + | Pending order | | PTT-Partial Thromboplastin | | | | Time | + + + + | Pending order | | CMP (Comprehensive | | | | Metabolic Panel) | + + + + | Pending order | | CBC w Manual Diff | + + + + | Pending order | | EGD | + + + + | Pending order | | PTT-Partial Thromboplastin | | | | Time | + + + + | Pending order | | Prothrombin Time | + + + + | Pending order | | CMP (Comprehensive | | | | Metabolic Panel) | + + + + | Pending order | | CBC w/ Diff - w/ platelets | + + + + | Pending order | | Colonoscopy screening | + + + + | Pending order | | Prothrombin Time | + + + + | Pending order | | PTT-Partial Thromboplastin | | | | Time | + + + + | Pending order | | CMP (Comprehensive | | | | Metabolic Panel) | + + + + | Pending order | | PAP THIN Sc wi HPV | + + + + | Pending order | | Mammogram - Screening | | | | (bilateral) | + + + + | Pending order | | PAP THIN Sc wi HPV | + + + + | Pending order | | Mammogram - Screening | | | | (bilateral) | + + + + | Pending order | | PAP, Reflex HPV High/Low | | | | Risk | + + + + | Pending order | | Path Tissue Specimens (A-C) | + + + + Procedures + + + + + | Code | Procedure Name | Date | Entry Date | + + + + + | PAP TS+HPV Multiple | PAP THIN Sc + hrHPV | | | | | and GNT | | | + + + + + | CPT-G8427 | Current Medications | | | | | Documented | | | + + + + + | [id number] | [Recorded for CQM] | | | | | Documentation of | | | | | current medications | | | | | (procedure) | | | + + + + + | PAP TS IF G0123 | PAP THIN Sc wi HPV | | | | | If Indicated | | | + + + + + | [id number] | [Recorded for CQ] | | | | | Documentation of | | | | | current medications | | | | | (procedure) | | | + + + + + | CPT-G8427 | Current Medications | | | | | Documented | | | + + + + + | PAP TS IF G0123 | PAP THIN Sc wi HPV | | | | | If Indicated | | | + + + + + | CPT-G8553 | eRx sent | | | + + + + + | CPT-62908 | UA Dipstick | | | + + + + + | PAP TS IF G0123 | PAP THIN Sc wi HPV | | | | | If Indicated | | | + + + + + | CPT-G8553 | eRx sent | | | + + + + + | CPT-G8553 | eRx sent | | | + + + + + | CPT-G8553 | ePrescription Sent | | | + + + + + | PAP TS WI MULTIPLE | PAP THIN Sc wi HPV | | | + + + + + | CPT-09288 | UA Dipstick | | | + + + + + | CPT-52894 | UA Dipstick | | | + + + + + | CPT-91106 | UA Dipstick | | | + + + + + | CPT-11842 | Excise Skin | | | | | Lesion/Genitalia | | | + + + + + | CPT-48778 | Mammogram - | | | | | Screening | | | | | (bilateral) | | | + + + + + | PAP HPV HL MULTIPLE | PAP, Reflex HPV | | | | | High/Low Risk | | | + + + + + | PATH SPEC PENDING | Path Tissue | | | | | Specimens (A-C) | | | + + + + + Vital Signs + + +-------+---------+ + | Date | Name | Value | Unit | Description | + + +-------+---------+ + | | BMI (Body Mass | 32.07 | kg/m2 | Body Mass Index | | | Index) | | | [Ratio] | + + +-------+---------+ + | | BP Diastolic | 86 | mm[Hg] | blood pressure, | | | | | | diastolic | + + +-------+---------+ + | | BP Systolic | 184 | mm[Hg] | blood pressure, | | | | | | systolic | + + +-------+---------+ + | | BSA (Body | 2.04 | | body surface | | | Surface Area) | | | area | + + +-------+---------+ + | | Height | 67 | [in_us] | height E&M | + + +-------+---------+ + | | Weight Measured | 204 | [lb_av] | weight E&M | + + +-------+---------+ + Social History + + + +-------+ + | Concept | Observation | Observation | Units | Start Date | | Description | Name | Value | | | + + + +-------+ + | Never smoker | SMOK STATUS | never smoker | | | + + + +-------+ + | Never smoker | SMOK STATUS | never smoker | | | + + + +-------+ + | Never smoker | SMOK STATUS | never smoker | | | + + + +-------+ + | Never smoker | SMOK STATUS | never smoker | | | + + + +-------+ +"
--- OUTSIDE RECORDS SUMMARY | ~2018-07-01 | XMS | Encounter Summary ---
Demographics + + + | Address | [address] | | | [place] [address] | + + + | Home Phone | [phone] | + + + | Preferred Language | Unknown | + + + | Marital Status | | + + + | Synagogue Affiliation | Unknown | + + + | Race | Unknown | + + + | Ethnic Group | Unknown | + + + Author + + + | Author | | + + + | Organization | | + + + | Address | [address] | | | [place] [address] | + + + | Phone | [phone] | + + + Care Team Providers + +------+ + | Care Sign Language Instructor Name | Role | Phone | + +------+ + | Dayanara Candelaria MD | 3 | [phone] | + +------+ + Reason for Visit + + | None recorded. | + + Instructions + + | 1. Influenza vaccination | + + | Fluzone Quad [id number] 60 mcg (15 mcg x 4)/0.5 mL IM suspension | + + Discussion Note: None recorded.Patient educational handouts: No information available. Plan of Care + + + + + | Reminders | | | Provider | | | | | | + + + + + | Appointments | Office Visit 20 | 03/01/2018 8:00AM | Bibiana Candelaria, | [...] PER DAY | | + +---+ | Diflucan 150 mg tablet Take 1 tablet today | | | and repeat in three days | | + +---+ | losartan 100 mg-hydrochlorothiazide 25 mg | | | tablet TAKE ONE TABLET BY MOUTH EVERY | | | MORNING | | + +---+ | methotrexate sodium 10 mg tablet | | | Take 6 tablets every week by oral route. | | + +---+ | pantoprazole 40 mg tablet,delayed release | | | TAKE ONE TABLET BY MOUTH EVERY NIGHT AT | | | BEDTIME | | + +---+ | pravastatin 40 mg tablet | | | TAKE ONE TABLET BY MOUTH DAILY | | + +---+ Medications Administered None recorded. Vitals None recorded. Lab Results None recorded. Allergies +-------+--------+ + + +--------+-------+ | Code | Code | Name | Reaction | Severity | Status | Onset | | | System | | | | | | +-------+--------+ + + +--------+-------+ | [id number] | RxNorm | Lisinopril | Cough | [...] + +---+ Past Encounters + --+ | 10/23/2017Influearchie Candelaria MD: [address] [address], | | [place] [address], Ph. | |Bibiana Candelaria MD: [address] [address], [place] [address], Ph. | + --+ History of Present Illness Note:Pt in office today for her flu vaccine. Review of Systems None recorded. Physical Exam None recorded."
--- OUTSIDE RECORDS SUMMARY | ~2018-07-01 | XMS | Encounter Summary ---
Demographics + + + | Address | [address] | | | [place] [address] | + + + | Home Phone | [phone] | + + + | Preferred Language | Unknown | + + + | Marital Status | | + + + | Christian Affiliation | Unknown | + + + | Race | Unknown | + + + | Ethnic Group | Unknown | + + + Author + + + | Author | | + + + | Organization | | + + + | Address | [address] | | | [place] [address] | + + + | Phone | [phone] | + + + Care Team Providers + +------+ + | Care Home Care Coordinator Name | Role | Phone | + +------+ + | Dayanara Candelaria MD | 3 | [phone] | + +------+ + Reason for Visit + + | None recorded. | + + Instructions + + | 1. Acute upper respiratory infection | + + | Zithromax Z-Galen 250 mg tablet | + + + + | Discussion Note | + + | Patient advised to followup if symptoms are not improving in 3 days, if symptoms worsen, | | or if new symptoms develop. | + [...] MOUTH DAILY | | + +---+ | Zithromax Z-Galen 250 mg tablet Take 2 | | | tablets (500 mg) by oral route NOW, and | | | then 1 tablet (250 mg) by oral route once | | | daily for 4 days | | + +---+ Medications Administered None recorded. Vitals + + + + + | Height | Weight | BMI | Blood Pressure | + + + + + | 5 ft 7 in | 202 lbs 16 oz | 31.8 kg/m2 | 149/74 mm[Hg] | + + + + + Lab Results None recorded. Allergies +-------+--------+ + + +--------+-------+ | Code | Code | Name | Reaction | Severity | Status | Onset | | | System | | | | | | +-------+--------+ + + +--------+-------+ | 37146 | RxNorm | Lisinopril | Cough | [...] | 03/01/2018 | XR, Knee, Weightbearing | [facility]) | | | | [address] | | | | [place] [address] | | | | (Work Place) | + + + + | 03/01/2018 | XR, Elbow, 2 View | [facility]) | | | | [address] | | | | [place] [address] | | | | (Work Place) | + + + + | 03/01/2018 | Keren HERNANDEZ, 2 View | [facility] ([facility]) | | | | [address] | | | | [place] [address] | | | | (Work Place) | [...] + +---+ Past Encounters + ----+ | 03/08/2018Acute Upper Respiratory InfectionCharchrissy Chowdhury PA-C: [address] [facility] | | [address] [place] [phone], Ph. | |Mauri Chowdhury PA-C: [address] [facility] [address], [place] [address], Ph. | + ----+ | 03/01/2018Benign Essential Hypertension; Hyperlipidemia; Degenerative Joint Disease | | Involving Multiple Joints; Bilateral Elbow Joint Pain; Bilateral Knee Pain; [employer] | | Methotrexate Julio César Candelaria MD: [address] [place] [address], [place], [place] | | [address], Ph. | + ----+ History of Present Illness Note:<div>Edie is a 57 YOM with hx of HTN who presents today for dry cough and rhinorrhea onset 6 days ago.</div><div>
</div><div>Denies fever, chills, nausea, vomitin g, or changes in bowel or bladder habits.</div> Review of Systems + + + | | Moderate Male ROS | + + + | Reported By: | Patient | + + + | Constitutional: | Constitutional: no fever; no chills | + + + | ENMT: | Nose: nose/sinus problems | + + + | Respiratory: | Respiratory: ; + cough | + + + | Gastrointestinal: | Gastrointestinal: no nausea, no vomiting | + + + | Genitourinary: | Genitourinary: no dysuria, no urinary | | | frequency | + + + Physical Exam + + + | | Cough | + + + | Reported By: | Patient | + + + | Constitutional: | General Appearance: awake, alert, NAD | + + + | ENT: | Right Ear: TM clear. Left Ear: TM clear. | | | Nasopharynx: congestion. Pharynx: airway | | | clear. Tonsils: normal, no trismus, no | | | abscess. Neck: supple, trachea midline | + + + | Chest/Lungs: | Chest/Lungs: clear to auscultation, | | | breathing sounds equal bilaterally | + + + | Cardiovascular: | Heart: normal rate/rhythm | + + + | Musculoskeletal:: | Extremities: normal | + + + | Neurologic: | Neurologic: intact, non-focal | + + + | Notes: | moist bronchial cough | + + +"
[2018-07-01] MEDS ORDERED: LOSARTAN-HCTZ1 EAC1 PO (06:21)
[2018-07-01] MEDS ORDERED: PRAVACHOL40 MG PO (06:21)
[2018-07-01] MEDS ORDERED: AZOR 5-20 MG T1 EACH PO (06:21)
[2018-07-01] MEDS ORDERED: PANTOPRAZOLE SO40 MG PO (06:22)
[2018-07-01] MEDS ORDERED: CYCLOBENZAPRINE10 MG PO (06:36)
[2018-07-01] MEDS ORDERED: TRAMADOL HCL50 MG PO (06:36)
== END 2018-07-01 06:45 | disposition home or self-care (01) ==
LOC: ED 05:55
DX: M62.830 Muscle spasm of back (principal); I10 Essential (primary) hypertension; Z79.899 Other long term (current) drug therapy
CPT/HCPCS: 99283